=== PATIENT | male | born 1960 | race Caucasian/White ===

== ENCOUNTER 2022-11-12 07:24 | Outpatient (OUT) | payer OTHER, SELFPAY ==
[2022-11-12 07:52] LABS: Bilirubin Urine NEGATIVE (NEGATIVE); Blood Urine NEGATIVE (NEGATIVE); Clarity Urine CLEAR (CLEAR); Color Urine YELLOW (YELLOW); Glucose Urine UA NEGATIVE (NEGATIVE); Ketones Urine NEGATIVE (NEGATIVE); Leukocyte Esterase Urine NEGATIVE (NEGATIVE); Nitrite Urine NEGATIVE (NEGATIVE); Protein Urine NEGATIVE (NEG/TRACE); Specific Gravity Urine 1.015 (1.005-1.025); Urobilinogen Urine 0.2 EU/dL (0.2-1.0); pH Urine 7.5 (5.0-9.0)
[2022-11-12 08:00] LABS: Basophils Absolute Auto 0.1 10^3/uL (0.0-0.1); Basophils Percent Auto 0.9 % (0.2-2.0); Eosinophils Absolute Auto 0.3 10^3/uL (0.0-0.7); Eosinophils Percent Auto 5.9 % (0.9-7.0); Hematocrit 45.6 % (42.0-54.0); Hemoglobin 15.4 g/dL (14.0-18.0); Immature Granulocytes Abs Auto 0.01 10^3/uL (0.00-0.03); Immature Granulocytes Pct Auto 0.2 % (0.0-0.5); Lymphocytes Absolute Auto 1.6 10^3/uL (1.2-3.8); Mean Corpuscular HGB Conc 33.8 g/dL (29.9-35.2); Mean Corpuscular Hemoglobin 30.4 pg (25.9-34.0); Mean Corpuscular Volume 89.9 fL (80.0-94.0); Monocytes Absolute Auto 0.7 10^3/uL (0.3-0.8); Monocytes Percent Auto 11.7 % (1.7-12.0); Neutrophils Absolute Auto 3.1 10^3/uL (1.4-6.5); Neutrophils Percent Auto 54.3 % (43.0-75.0); Platelet Count 226 10^3/uL (150-450); Red Blood Count 5.07 10^6/uL (4.70-6.10); Red Cell Distribution Width 12.2 % (11.0-15.0); White Blood Count 5.8 10^3/uL (4.0-11.0)
[2022-11-12 08:06] LABS: Estimated Average Glucose 111 mg/dL; Glycohemoglobin A1C 5.5 % (4.5-6.2)
[2022-11-12 08:08] LABS: RBC Urine 0-2 #/HPF (0-2); WBC Urine NONE SEEN #/HPF (NONE SEEN)
[2022-11-12 08:09] LABS: Bacteria Urine NONE SEEN #/HPF (NONE SEEN); Cast Seen? NONE SEEN #/LPF (NONE SEEN); Crystals Seen? None Seen #/HPF (None Seen); Mucus Urine NONE SEEN (NONE SEEN); Squamous Epithelial Cell Urine NONE SEEN #/LPF (NONE/RARE); Urine Culture Indicated ALREADY ORDERED
[2022-11-12 08:09] LABS: Alanine Aminotransferase 38 U/L (16-63); Albumin Globulin Ratio 1.1; Albumin Level 3.8 g/dL (3.4-5.0); Alkaline Phosphatase 61 U/L (46-116); Anion Gap 12.6; Aspartate Amino Transferase 17 U/L (15-37); BUN Creatinine Ratio 17.8; Bilirubin Total 0.5 mg/dL (0.2-1.0); Calcium 8.9 mg/dL (8.5-10.1); Carbon Dioxide 29.4 mmol/L (21.0-32.0); Chloride 103 mmol/L (98-107); Chol HDL Ratio 2.2; Cholesterol 178 mg/dL (<=200); Estimated GFR (African America >60 (>=60); Estimated GFR (Non-African Ame >60 (>=60); Globulin 3.4 g/dL; Glucose 104 mg/dL (74-106); HDL Cholesterol 80 mg/dL (40-60); Sodium 141 mmol/L (136-145); Total Protein 7.2 g/dL (6.4-8.2); Triglycerides 52 mg/dL (<=150); VLDL CHOLESTEROL 10.4 mg/dL
[2022-11-12 08:23] LABS: Prostate Specific Antigen Scrn 0.69 ng/mL (<=4.00)
== END 2022-11-12 07:25 | disposition home or self-care (01) ==
LOC: LAB 07:24
PROVIDERS: PCP Family Medicine; Visit Provider Family Medicine
DX: E78.5 Hyperlipidemia, unspecified (principal); R73.9 Hyperglycemia, unspecified; Z79.899 Other long term (current) drug therapy; Z12.5 Encounter for screening for malignant neoplasm of prostate; R35.1 Nocturia
CPT/HCPCS: 36415; 80053; 80061; 81001; 83036; 85025; 87086; G0103

== ENCOUNTER 2023-05-18 06:37 | Outpatient (OUT) | payer OTHER, SELFPAY ==
[2023-05-18 07:06] LABS: Hemoglobin 15.2 g/dL (14.0-18.0); Mean Corpuscular HGB Conc 33.8 g/dL (29.9-35.2); Mean Corpuscular Hemoglobin 30.2 pg (25.9-34.0); Mean Corpuscular Volume 89.5 fL (80.0-94.0); Mean Platelet Volume 9.5 fL (9.5-13.5); Platelet Count 214 10^3/uL (150-450); Red Blood Count 5.03 10^6/uL (4.70-6.10); Red Cell Distribution Width 12.4 % (11.0-15.0); White Blood Count 4.6 10^3/uL (4.0-11.0)
[2023-05-18 07:36] LABS: Estimated Average Glucose 108 mg/dL; Glycohemoglobin A1C 5.4 % (4.5-6.2)
[2023-05-18 07:55] LABS: Alanine Aminotransferase 36 U/L (16-63); Albumin Globulin Ratio 1.1; Albumin Level 3.6 g/dL (3.4-5.0); Alkaline Phosphatase 64 U/L (46-116); Anion Gap 13.3; Aspartate Amino Transferase 25 U/L (15-37); BUN Creatinine Ratio 13.9; Bilirubin Total 0.5 mg/dL (0.2-1.0); Calcium 9.2 mg/dL (8.5-10.1); Carbon Dioxide 28.9 mmol/L (21.0-32.0); Chloride 104 mmol/L (98-107); Cholesterol 163 mg/dL (<=200); Estimated GFR (African America >60 (>=60); Estimated GFR (Non-African Ame >60 (>=60); Globulin 3.3 g/dL; Glucose 106 mg/dL (74-106); HDL Cholesterol 81 mg/dL (40-60); Potassium 4.2 mmol/L (3.5-5.1); Sodium 142 mmol/L (136-145); Thyroid Stimulating Hormone 2.634 uIU/mL (0.358-3.740); Total Protein 6.9 g/dL (6.4-8.2); Triglycerides 55 mg/dL (<=150)
[2023-05-18 08:17] LABS: Eosinophils Absolute Manual 0.55 10^3/uL (0.00-0.70); Lymphocytes Absolute Manual 0.87 10^3/uL (1.20-3.80); Segmented Neut Absolute Manual 2.71 10^3/uL (1.4-6.5)
== END 2023-05-18 06:38 | disposition home or self-care (01) ==
LOC: LAB 06:37
PROVIDERS: PCP Family Medicine; Visit Provider Family Medicine
DX: E78.5 Hyperlipidemia, unspecified (principal); R73.9 Hyperglycemia, unspecified; Z79.899 Other long term (current) drug therapy; R63.4 Abnormal weight loss
CPT/HCPCS: 36415; 80053; 80061; 83036; 84443; 85007; 85027

== ENCOUNTER 2023-12-07 06:31 | Outpatient (OUT) | payer OTHER, SELFPAY ==
[2023-12-07 06:51] LABS: Basophils Absolute Auto 0.1 10^3/uL (0.0-0.1); Basophils Percent Auto 1.1 % (0.2-2.0); Eosinophils Absolute Auto 0.5 10^3/uL (0.0-0.7); Eosinophils Percent Auto 9.8 % (0.9-7.0); Hematocrit 46.9 % (42.0-54.0); Hemoglobin 15.9 g/dL (14.0-18.0); Immature Granulocytes Abs Auto 0.01 10^3/uL (0.00-0.03); Immature Granulocytes Pct Auto 0.2 % (0.0-0.5); Lymphocytes Absolute Auto 1.6 10^3/uL (1.2-3.8); Lymphocytes Percent Auto 28.3 % (20.5-60.0); Mean Corpuscular HGB Conc 33.9 g/dL (29.9-35.2); Mean Corpuscular Hemoglobin 30.5 pg (25.9-34.0); Mean Platelet Volume 9.1 fL (9.5-13.5); Monocytes Absolute Auto 0.6 10^3/uL (0.3-0.8); Monocytes Percent Auto 10.5 % (1.7-12.0); Neutrophils Absolute Auto 2.8 10^3/uL (1.4-6.5); Neutrophils Percent Auto 50.1 % (43.0-75.0); Platelet Count 225 10^3/uL (150-450); Red Blood Count 5.21 10^6/uL (4.70-6.10); Red Cell Distribution Width 12.2 % (11.0-15.0); White Blood Count 5.5 10^3/uL (4.0-11.0)
[2023-12-07 06:52] LABS: Bilirubin Urine NEGATIVE (NEGATIVE); Blood Urine NEGATIVE (NEGATIVE); Clarity Urine CLEAR (CLEAR); Color Urine YELLOW (YELLOW); Glucose Urine UA NEGATIVE (NEGATIVE); Ketones Urine NEGATIVE (NEGATIVE); Leukocyte Esterase Urine NEGATIVE (NEGATIVE); Nitrite Urine NEGATIVE (NEGATIVE); Protein Urine NEGATIVE (NEG/TRACE); Urobilinogen Urine 0.2 EU/dL (0.2-1.0)
[2023-12-07 06:59] LABS: Estimated Average Glucose 108 mg/dL; Glycohemoglobin A1C 5.4 % (4.5-6.2)
[2023-12-07 07:09] LABS: RBC Urine NONE SEEN #/HPF (0-2); WBC Urine 0-2 #/HPF (NONE SEEN)
[2023-12-07 07:10] LABS: Bacteria Urine TRACE #/HPF (NONE SEEN); Cast Seen? NONE SEEN #/LPF (NONE SEEN); Crystals Seen? None Seen #/HPF (None Seen); Mucus Urine SMALL (NONE SEEN); Squamous Epithelial Cell Urine RARE #/LPF (NONE/RARE)
[2023-12-07 07:11] LABS: Alanine Aminotransferase 32 U/L (16-63); Albumin Globulin Ratio 1.1; Albumin Level 3.7 g/dL (3.4-5.0); Alkaline Phosphatase 68 U/L (46-116); Anion Gap 12.6; Aspartate Amino Transferase 24 U/L (15-37); BUN Creatinine Ratio 13.5; Bilirubin Total 0.7 mg/dL (0.2-1.0); Calcium 9.4 mg/dL (8.5-10.1); Carbon Dioxide 29.8 mmol/L (21.0-32.0); Chloride 105 mmol/L (98-107); Cholesterol 176 mg/dL (<=200); Estimated GFR (African America >60 (>=60 mL/min/1.73m^2); Estimated GFR (Non-African Ame >60 (>=60 mL/min/1.73m^2); Globulin 3.3 g/dL; Glucose 108 mg/dL (74-106); HDL Cholesterol 88 mg/dL (40-60); Potassium 4.4 mmol/L (3.5-5.1); Sodium 143 mmol/L (136-145); Triglycerides 104 mg/dL (<=150); VLDL CHOLESTEROL 20.8 mg/dL
[2023-12-07 07:23] LABS: Prostate Specific Antigen Scrn 0.71 ng/mL (<=4.00)
== END 2023-12-07 06:32 | disposition home or self-care (01) ==
PROVIDERS: PCP Family Medicine; Visit Provider Family Medicine
DX: Z00.00 Encounter for general adult medical examination without abnormal findings (principal)
CPT/HCPCS: 36415; 80053; 80061; 81001; 83036; 85025; G0103

== ENCOUNTER 2024-06-10 06:37 | Outpatient (OUT) | payer OTHER, SELFPAY ==
--- OUTSIDE RECORDS SUMMARY | 2024-06-10 06:40 | XMS_ITS | CCD ---
Author Organization [facility] Care Team Providers Care Building Construction Inspector Name Role Phone MirianAdina Unavailable Deon Funez Unavailable ARMIN, DR CHAVARRIA Consulting Unavailable ARMIN, DR CHAVARRIA Attending Unavailable GIRDAYDAY, DR CHAVARRIA Admitting Unavailable GIRDAYDAY, DR CHAVARRIA Primary Care Unavailable GIRDAYDAY, DR CHAVARRIA Consulting Unavailable GIRDAYDAY, DR CHAVARRIA Attending Unavailable GIRDAYDAY, DR CHAVARRIA Admitting Unavailable GIRDAYDAY, DR CHAVARRIA Primary Care Unavailable FOREIGN RIVERA Attending Unavailable RYAN BREEN Attending Unavailable Allergies Allergy Classification Reported Allergen(s) Allergy Type Date of Onset Reaction(s) Facility (10 sources) Penicillin; Translations: [penicillin] Drug Allergy rash [facility] Repository Medications Current Medications Medication Drug Class(es) Dates Sig (Normalized) Sig (Original) Jaleesa-D 12 Hour (10 sources) Jaleesa-D 12 Pipe r prn Not-Taking Jaleesa-D 12 Pipe r prn Active amLODIPine 10 mg oral tablet (10 sources) Dihydropyridine Calcium Channel David take 1 tablet by mouth once daily amLODIPine Besylate 10 MG TAKE 1 TABLET BY MOUTH EVERY DAY Active Aspirin (10 sources) Platelet Aggregation Inhibitor, Nonsteroidal Anti-inflammatory Drug take 1 tablet by mouth once melissa y Aspirin 325 mg 325 mg one tab orally daily Active atorvastatin 40 mg oral tablet (10 sources) HMG-CoA Reductase Inhibitor take 1 tablet by mouth once daily at bedtime Atorvastatin Calcium 40 MG TAKE 1 TABLET BY MOUTH EVERYDAY AT BEDTIME Active take 1 tablet by heidi th once daily at bedtime Atorvastatin Calcium TAKE 1 TABLET BY MO UTH EVERYDAY AT BEDTIME for 90 days Active benazepril hydrochloride 20 mg oral tablet (10 sources) Angiotensin Converting Enzyme Inhibitor take 1 tablet by mouth once daily Benazepril HCl 20 MG TAKE 1 TABLET BY MOUTH EVERY DAY Active famotidine 20 mg oral tablet (10 sources) Histamine-2 Receptor Antagonist take 1 tablet by mouth once daily in the morning, then take 1 tablet by mouth once daily in the evening Famotidine 20 MG TAKE 1 TABLET BY MOUTH EVERY DAY IN THE MORNING AND TAKE 1 TABLET EVERY DAY IN THE EVENING Active Glucosamine (10 sources) Glucosamine OTC pt. takes 1,000 mg daily Active melatonin 3 mg oral tablet (4 sources) take 1 tablet by heidi th at bedtime as needed Melatonin 3 MG 1 tablet at bedtime as needed with food Orally prn prn Active mometasone furoate 1 mg/ml topical cream (2 sources) Corticosteroid Start: 04-29-2022 Mometasone Fur oate 0.1 % 1 application Externally Once a day Apr, Active Multivitamin Adults 50+ (10 sources) Multivitamin Mir lts 50+ Orally Active predniSONE 20 mg oral tablet (4 sources) Start: 02-12-2021 take 1 tablet by mouth every twelve hours predniSONE 20 MG 1 tablet Orally bid for 5 day(s) Jan, Active {20 (nirmatrelvir 150 MG Oral Tablet) / 10 (ritonavir 100 MG Oral Tablet) } Pack [Paxlovid 5-Day] (1 source) Start: 02-04-2022 Paxlovid (300/ 100) 20 x 150 MG & 10 x 100MG as directed Orally Twice a day for 5 day(s) Jan, Active Completed/Discontinued Medications Medication Drug Class(es) Dates Sig (Normalized) Sig (Original) fluticasone propionate 0.05 mg/actuat metered dose nasal spray (10 sources) Corticosteroid take 1-2 spray(s) nasal route once daily as needed Fluticasone Propionate 50 MCG/ACT USE 1-2 SPRAYS INTO EACH NOSTRIL ONCE DAILY prn Not-Taking take 1-2 spray(s) na cali route once daily as needed FLONASE 50 mcg 1-2 sprays each NOSTRIL nasally qd prn Active methylPREDNISolone (5 sources) Corticosteroid Start: 05-14-2017 Depo-Medrol 40 mg Apr, 60 mg Problems Active Problems Problem Classification Problem Date Documented Date Episodic/Chronic Acute cerebrovascular disease (10 sources) Cerebral infarction; Translations: [Cerebral infarction, unspecified] Chronic Adjustment disorders (10 sources) Reaction to severe stress, unspecified; Translations: [Stress] Chronic Anxiety disorders (10 sources) Anxiety; Translations: [Anxiety disorder, unspecified] Chronic Diabetes mellitus without complication (5 sources) Hyperglycemia, unspecified; Translations: [HYPERGLYCEMIA UNSPECIFIED] Onset: 03-11-2021 Resolved: 10-21-2021 Episodic Disorders of lipid metabolism (18 sources) Hyperlipidemia; Translations: [Hyperlipidemia, unspecified] Onset: 03-11-2021 Resolved: 10-21-2021 Chronic Esophageal disorders (13 sources) Gastroesophageal reflux disease; Translations: [Gastro-esophageal reflux disease without esophagitis] Onset: 10-21-2021 Resolved: 10-21-2021 Chronic Essential hypertension (20 sources) Elevated blood pressure; Translations: [Essential (primary) hypertension] Onset: 03-11-2021 Resolved: 10-21-2021 Chronic Fever of unknown origin (2 sources) Fever, unspecified Onset: 02-13-2021 Resolved: 02-13-2021 Episodic Genitourinary symptoms and ill-defined conditions (5 sources) Nocturia; Translations: [NOCTURIA] Onset: 03-11-2021 Resolved: 10-21-2021 Episodic Malaise and fatigue (1 source) Other fatigue Episodic Other aftercare (5 sources) Other supervisor intermediates (current) drug therapy; Translations: [OTH PRISON CURRENT DRUG THERAPY] Onset: 03-11-2021 Resolved: 10-21-2021 Episodic Other connective tissue disease (1 source) Myalgia, unspecified site Episodic Other nutritional; endocrine; and metabolic disorders (4 sources) Abnormal weight loss; Translations: [ABNORMAL WEIGHT LOSS] Onset: 10-21-2021 Resolved: 10-21-2021 Episodic Other screening for suspected conditions (not mental disorders or infectious disease) (4 sources) Encounter for screening for malignant neoplasm of prostate; Translations: [ENC SCREEN MALIG NEOPLASM PROSTATE] Onset: 03-11-2021 Resolved: 10-21-2021 Episodic Other upper respiratory disease (10 sources) Allergic rhinitis; Translations: [Allergic rhinitis, unspecified] Chronic Other upper respiratory disease (3 sources) Allergic rhinitis, unspecified Onset: 03-11-2021 Resolved: 10-21-2021 Chronic Residual codes; unclassified (10 sources) Insomnia; Translations: [Insomnia, unspecified] Episodic Past or Other Problems Problem Classification Problem Date Documented Da te Episodic/Chronic Immunizations and screening for infectious disease (1 source) Contact with and (suspected) exposure to other viral communicable diseases Onset: 02-12-2021 Resolved: 02-12-2021 Episodic Other circulatory disease (1 source) Other specified symptoms and signs involving the circulatory and respiratory systems Onset: 02-13-2021 Resolved: 02-13-2021 Episodic Other non-traumatic joint disorders (1 source) Pain in left hip Onset: 10-21-2021 Resolved: 10-21-2021 Episodic Other nutritional; endocrine; and metabolic disorders (1 source) Abnormal weight gain Onset: 03-11-2021 Resolved: 03-11-2021 Episodic Other upper respiratory disease (1 source) Nasal congestion Onset: 02-13-2021 Resolved: 02-13-2021 Episodic Other upper respiratory infections (1 source) Acute sinusitis, unspecified Onset: 02-12-2021 Resolved: 02-12-2021 Episodic Unclassified (2 sources) Cough R05.9 Onset: 02-13-2021 Resolved: 02-13-2021 Viral infection (1 source) COVID-19 Results Test Name Value Interpretation Reference Range Facil ity CBC AUTO DIFFon 05-02-2022 BASO # 0.1 103/ul Normal 0.0-0.1 [facility] Comment on above: Performed By: #### C BC #### [facility] [address] [place] [address] Dr. Puja Leonard Basophils/100 WBC (Bld) 1.1 % Normal 0.2-2.0 [facility] Comment on above: Performed By: #### C BC #### [facility] [address] [place] [address] Dr. Puja Leonard EO # 0.3 103/ul Normal 0.0-0.7 [facility] Comment on above: Performed By: #### C BC #### [facility] [address] [place] [address] Dr. Puja Leonard Eosinophils/100 WBC (Bld) 6.6 % Normal 0.9-7.0 [facility] Comment on above: Performed By: #### C BC #### [facility] [address] [place] [address] Dr. Puja Leonard Erythrocyte distribution width (RBC) [Ratio] 12.3 % Normal 11.0-15.0 [facility] Comment on above: Performed By: #### C BC #### [facility] [address] [place] [address] Dr. Puja Leonard Hematocrit (Bld) [Volume fraction] 46.1 % Normal 42.0-54.0 [facility] Comment on above: Performed By: #### C BC #### [facility] [address] [place] [address] Dr. Puja Leonard Hemoglobin (Bld) [Mass/Vol] 15.8 g/dL Normal 14.0-18.0 [facility] Comment on above: Performed By: #### C BC #### [facility] [address] [place] [address] Dr. Puja Leonard IG # 0.01 10e3/ul Normal 0.00-0.03 [facility] Comment on above: Performed By: #### C BC #### [facility] [address] [place] [address] Dr. Puja Leonard IG % 0.2 % Normal 0.0-0.5 [facility] Comment on above: Performed By: #### C BC #### [facility] [address] [place] [address] Dr. Puja Leonard LYMPH # 1.5 103/ul Normal 1.2-3.8 [facility] Comment on above: Performed By: #### C BC #### [facility] [address] [place] [address] Dr. Puja Leonard Lymphocytes/100 WBC (Bld) 32.4 % Normal 20.5-60.0 [facility] Comment on above: Performed By: #### C BC #### [facility] [address] [place] [address] Dr. Puja Leonard MANUAL DIFF REQ NO Normal [facility] Comment on above: Performed By: #### C BC #### [facility] [address] [place] [address] Dr. Puja Leonard MCH (RBC) [Entitic mass] 29.9 pg Normal 25.9-34.0 [facility] Comment on above: Performed By: #### C BC #### [facility] [address] [address] [address] Puja Leonard MCHC (RBC) [Mass/Vol] 34.3 g/dL Normal 29.9-35.2 [facility] Comment on above: Performed By: #### C BC #### [facility] [address] [address] [address] Puja Leonard MCV (RBC) [Entitic vol] 87.3 fL Normal 80.0-94.0 [facility] Comment on above: Performed By: #### C BC #### [facility] [address] [address] [address] Puja Leonard MONO # 0.5 103/ul Normal 0.3-0.8 [facility] Comment on above: Performed By: #### C BC #### [facility] [address] [place] [address] Dr. Puja Leonard Monocytes/100 WBC (Bld) 10.2 % Normal 1.7-12.0 [facility] Comment on above: Performed By: #### C BC #### [facility] [address] [address] [address] Puja Leonard NEUT # 2.3 103/ul Normal 1.4-6.5 [facility] Comment on above: Performed By: #### C BC #### [facility] [address] [place] [address] Dr. Puja Leonard Neutrophils/100 WBC (Bld) 49.5 % Normal 43.0-75.0 [facility] Comment on above: Performed By: #### C BC #### [facility] [address] [address] [address] Puja Leonard Platelet mean volume (Bld) [Entitic vol] 8.6 fL Critically low 9.5-13.5 [facility] Comment on above: Performed By: #### C BC #### [facility] [address] [address] [address] Puja Leonard PLT 215 103/ul Normal 150-450 [facility] Comment on above: Performed By: #### C BC #### [facility] [address] [place] [address] Dr. Puja Leonard RBC 5.28 106/ul Normal 4.70-6.10 [facility] Comment on above: Performed By: #### C BC #### [facility] [address] [address] [address] Puja Leonard WBC 4.7 103/ul Normal 4.0-11.0 [facility] Comment on above: Performed By: #### C BC #### [facility] [address] [place] [address] Dr. Puja Leonard GLYCOHEMOGLOBIN A1Con 2022 ADA RECOMMENDATION SEE BELOW Normal [facility] Comment on above: Result Comment: ADA RECOMMENDED LIMIT 4.0 - 6.0 ADA THERAPEUTIC TARGET < 7.0 ACTION SUGGESTED > 7.0 Performed By: #### A 1C #### [facility] [address] [place] [address] Dr. Puja Leonard Glucose [Mass/Vol] 114 mg/dL Normal [facility] Comment on above: Performed By: #### A 1C #### [facility] [address] [place] [address] Dr. Puja Leonard HbA1c (Bld) [Mass fraction] 5.6 % Normal 4.5-6.2 [facility] Comment on above: Performed By: #### A 1C #### [facility] [address] [place] [address] Dr. Puja Leonard LIPID PROFILEon 05-02-2022 CHOL-HDL RATIO NORM SEE BELOW Normal [facility] Comment on above: Result Comment: 3.3 - 4.4 LOW RISK 4.4 - 7.1 AVERAGE RISK 7.1 - 11.0 MODERATE RISK >11.0 HIGH RISK Performed By: #### T SH, LIPID, CMP #### [facility] [address] [place] [address] Dr. Puja Leonard Cholesterol [Mass/Vol] 186 mg/dL Normal <=200 [facility] Comment on above: Performed By: #### T SH, LIPID, CMP #### [facility] [address] [address] [address] Puja Leonard Cholesterol in HDL [Mass/Vol] 79 mg/dL Critically high 40-60 [facility] Comment on above: Performed By: #### T SH, LIPID, CMP #### [facility] [address] [address] [address] Puja Leonard Cholesterol in LDL [Mass/Vol] 94.8 mg/dL Normal [facility] Comment on above: Performed By: #### T SH, LIPID, CMP #### [facility] [address] [place] [address] Dr. Puja Leonard Cholesterol.total/Cho lesterol in HDL [Mass ratio] 2.4 {ratio} Normal [facility] Comment on above: Performed By: #### T SH, LIPID, CMP #### [facility] [address] [address] [address] Puja Leonard HDL NORMAL > or = 60 mg/dl - LOW CARDIOVASCULAR RISK <40 mg/dl - HIGH CARDIOVASCULAR RISK Normal [facility] Comment on above: Performed By: #### T SH, LIPID, CMP #### [facility] [address] [place] [address] Dr. Puja Leonard LDL CALC NORMAL SEE BELOW Normal [facility] Comment on above: Result Comment: <100 mg/dl OPTIMAL 100 - 129 mg/dl NEAR OR ABOVE OPTIMAL 130 - 159 mg/dl BORDERLINE HIGH 160 - 189 mg/dl HIGH >190 mg/dl VERY HIGH Performed By: #### T JOSE, LIPID, CMP #### [facility] [address] [address] [address] Puja Leonard Triglyceride [Mass/Vol] 61 mg/dL Normal <=150 [facility] Comment on above: Performed By: #### T SH, LIPID, CMP #### [facility] [address] [place] [address] Dr. Puja Leonard VLDL CALC 12.2 mg/dL Normal [facility] Comment on above: Performed By: #### T SH, LIPID, CMP #### [facility] [address] [place] [address] Dr. Puja Leonard PROF 14(COMP METB)on 023 Albumin [Mass/Vol] 3.8 g/dL Normal 3.4-5.0 [facility] Comment on above: Performed By: #### T SH, LIPID, CMP #### [facility] [address] [address] [address] Puja Leonard Albumin/Globulin [Mass ratio] 1.2 {ratio} Normal [facility] Comment on above: Performed By: #### T SH, LIPID, CMP #### [facility] [address] [address] [address] Puja Leonard ALP [Catalytic activity/Vol] 62 U/L Normal 46-116 [facility] Comment on above: Performed By: #### T JOSE, LIPID, CMP #### [facility] [address] [place] [address] Dr. Puja Leonard ALT [Catalytic activity/Vol] 45 U/L Normal 16-63 [facility] Comment on above: Performed By: #### T JOSE, LIPID, CMP #### [facility] [address] [address] [address] Puja Leonard Anion gap [Moles/Vol] 12.4 mmol/L Normal [facility] Comment on above: Performed By: #### T JOSE, LIPID, CMP #### [facility] [address] [place] [address] Dr. Puja Leonard AST [Catalytic activity/Vol] 24 U/L Normal 15-37 [facility] Comment on above: Performed By: #### T JOSE, LIPID, CMP #### [facility] [address] [address] [address] Puja Leonard Bilirubin [Mass/Vol] 0.4 mg/dL Normal 0.2-1.0 [facility] Comment on above: Performed By: #### T SH, LIPID, CMP #### [facility] [address] [address] [address] Puja Leonard Calcium [Mass/Vol] 9.1 mg/dL Normal 8.5-10.1 [facility] Comment on above: Performed By: #### T SH, LIPID, CMP #### [facility] [address] [address] [address] Puja Leonard Chloride [Moles/Vol] 105 mmol/L Normal 98-107 [facility] Comment on above: Performed By: #### T SH, LIPID, CMP #### [facility] [address] [place] [address] Dr. Puja Leonard CO2 [Moles/Vol] 30.2 mmol/L Normal 21.0-32.0 [facility] Comment on above: Performed By: #### T SH, LIPID, CMP #### [facility] [address] [address] [address] Puja Leonard Creatinine [Mass/Vol] 0.86 mg/dL Normal 0.70-1.30 [facility] Comment on above: Performed By: #### T SH, LIPID, CMP #### [facility] [address] [place] [address] Dr. Puja Leonard EGFR-AF CYMRO >60 Normal >=60 [facility] Comment on above: Performed By: #### T SH, LIPID, CMP #### [facility] [address] [place] [address] Dr. Puja Leonard EGFR-NON AF CYMRO >60 Normal >=60 [facility] Comment on above: Performed By: #### T SH, LIPID, CMP #### [facility] [address] [place] [address] Dr. Puja Leonard Globulin (S) [Mass/Vol] 3.1 g/dL Normal [facility] Comment on above: Performed By: #### T SH, LIPID, CMP #### [facility] [address] [place] [address] Dr. Puja Leonard Glucose [Mass/Vol] 109 mg/dL Critically high 74-106 [facility] Comment on above: Performed By: #### T SH, LIPID, CMP #### [facility] [address] [place] [address] Dr. Puja Leonard Potassium [Moles/Vol] 4.6 mmol/L Normal 3.5-5.1 [facility] Comment on above: Performed By: #### T SH, LIPID, CMP #### [facility] [address] [place] [address] Dr. Puja Leonard Protein [Mass/Vol] 6.9 g/dL Normal 6.4-8.2 [facility] Comment on above: Performed By: #### T SH, LIPID, CMP #### [facility] [address] [place] [address] Dr. Puja Leonard Sodium [Moles/Vol] 143 mmol/L Normal 136-145 [facility] Comment on above: Performed By: #### T SH, LIPID, CMP #### [facility] [address] [place] [address] Dr. Puja Leonard Urea nitrogen [Mass/Vol] 13.0 mg/dL Normal 7.0-18.0 [facility] Comment on above: Performed By: #### T SH, LIPID, CMP #### [facility] [address] [place] [address] Dr. Puja Leonard Urea nitrogen/Creatinine [Mass ratio] 15.1 mg/mg Normal [facility] Comment on above: Performed By: #### T SH, LIPID, CMP #### [facility] [address] [place] [address] Dr. Puja Leonard TSHon 05-02-2022 TSH 2.403 uIU/mL Normal 0.358-3.740 [facility] Comment on above: Performed By: #### T SH, LIPID, CMP #### [facility] [address] [place] [address] Dr. Puja Leonard CBC AUTO DIFFon 10-11-2021 BASO # 0.0 103/ul Normal 0.0-0.1 [facility] Comment on above: Performed By: #### C BC #### [facility] [address] [place] [address] Dr. Puja Leonard Basophils/100 WBC (Bld) 0.7 % Normal 0.2-2.0 [facility] Comment on above: Performed By: #### C BC #### [facility] [address] [place] [address] Dr. Puja Leonard EO # 0.3 103/ul Normal 0.0-0.7 [facility] Comment on above: Performed By: #### C BC #### [facility] [address] [place] [address] Dr. Puja Leonard Eosinophils/100 WBC (Bld) 5.9 % Normal 0.9-7.0 [facility] Comment on above: Performed By: #### C BC #### [facility] [address] [place] [address] Dr. Puja Leonard Erythrocyte distribution width (RBC) [Ratio] 12.2 % Normal 11.0-15.0 [facility] Comment on above: Performed By: #### C BC #### [facility] [address] [place] [address] Dr. Puja Leonard Hematocrit (Bld) [Volume fraction] 46.0 % Normal 42.0-54.0 [facility] Comment on above: Performed By: #### C BC #### [facility] [address] [place] [address] Dr. Puja Leonard Hemoglobin (Bld) [Mass/Vol] 15.8 g/dL Normal 14.0-18.0 [facility] Comment on above: Performed By: #### C BC #### [facility] [address] [place] [address] Dr. Puja Leonard IG # 0.01 10e3/ul Normal 0.00-0.03 [facility] Comment on above: Performed By: #### C BC #### [facility] [address] [place] [address] Dr. Puja Leonard IG % 0.2 % Normal 0.0-0.5 [facility] Comment on above: Performed By: #### C BC #### [facility] [address] [place] [address] Dr. Puja Leonard LYMPH # 1.7 103/ul Normal 1.2-3.8 [facility] Comment on above: Performed By: #### C BC #### [facility] [address] [place] [address] Dr. Puja Leonard Lymphocytes/100 WBC (Bld) 29.1 % Normal 20.5-60.0 [facility] Comment on above: Performed By: #### C BC #### [facility] [address] [place] [address] Dr. Puja Leonard MANUAL DIFF REQ NO Normal [facility] Comment on above: Performed By: #### C BC #### [facility] [address] [place] [address] Dr. Puja Leonard MCH (RBC) [Entitic mass] 30.5 pg Normal 25.9-34.0 [facility] Comment on above: Performed By: #### C BC #### [facility] [address] [place] [address] Dr. Puja Leonard MCHC (RBC) [Mass/Vol] 34.3 g/dL Normal 29.9-35.2 [facility] Comment on above: Performed By: #### C BC #### [facility] [address] [place] [address] Dr. Puja Leonard MCV (RBC) [Entitic vol] 88.8 fL Normal 80.0-94.0 [facility] Comment on above: Performed By: #### C BC #### [facility] [address] [place] [address] Dr. Puja Leonard MONO # 0.7 103/ul Normal 0.3-0.8 [facility] Comment on above: Performed By: #### C BC #### [facility] [address] [place] [address] Dr. Puja Leonard Monocytes/100 WBC (Bld) 11.5 % Normal 1.7-12.0 [facility] Comment on above: Performed By: #### C BC #### [facility] [address] [place] [address] Dr. Puja Leonard NEUT # 3.0 103/ul Normal 1.4-6.5 [facility] Comment on above: Performed By: #### C BC #### [facility] [address] [place] [address] Dr. Puja Leonard Neutrophils/100 WBC (Bld) 52.6 % Normal 43.0-75.0 [facility] Comment on above: Performed By: #### C BC #### [facility] [address] [address] [address] Puja Leonard Platelet mean volume (Bld) [Entitic vol] 8.8 fL Critically low 9.5-13.5 [facility] Comment on above: Performed By: #### C BC #### [facility] [address] [address] [address] Puja Leonard PLT 235 103/ul Normal 150-450 [facility] Comment on above: Performed By: #### C BC #### [facility] [address] [address] [address] Puja Leonard RBC 5.18 106/ul Normal 4.70-6.10 [facility] Comment on above: Performed By: #### C BC #### [facility] [address] [place] [address] Dr. Puja Leonard WBC 5.7 103/ul Normal 4.0-11.0 [facility] Comment on above: Performed By: #### C BC #### [facility] [address] [place] [address] Dr. Puja Leonard CULTURE URINEon 10-11-2021 CULTURE URINE Culture Observations: NO GROWTH. Normal [facility] Comment on above: Performed By: #### U RCX #### [facility] [address] [place] [address] Dr. Puja Leonard GLYCOHEMOGLOBIN A1Con 2021 ADA RECOMMENDATION SEE BELOW Normal [facility] Comment on above: Result Comment: ADA RECOMMENDED LIMIT 4.0 - 6.0 ADA THERAPEUTIC TARGET < 7.0 ACTION SUGGESTED > 7.0 Performed By: #### A 1C #### [facility] [address] [place] [address] Dr. Puja Leonard Glucose [Mass/Vol] 111 mg/dL Critically high 74-106 [facility] Comment on above: Performed By: #### A 1C #### [facility] [address] [place] [address] Dr. Puja Leonard Performed By: #### T SH, LIPID, CMP #### [facility] [address] [address] [address] Puja Leonard HbA1c (Bld) [Mass fraction] 5.5 % Normal 4.5-6.2 [facility] Comment on above: Performed By: #### A 1C #### [facility] [address] [address] [address] Puja Leonard LIPID PROFILEon 10-11-2021 CHOL-HDL RATIO NORM SEE BELOW Normal [facility] Comment on above: Result Comment: 3.3 - 4.4 LOW RISK 4.4 - 7.1 AVERAGE RISK 7.1 - 11.0 MODERATE RISK >11.0 HIGH RISK Performed By: #### T SH, LIPID, CMP #### [facility] [address] [address] [address] Puja Leonard Cholesterol [Mass/Vol] 176 mg/dL Normal <=200 [facility] Comment on above: Performed By: #### T SH, LIPID, CMP #### [facility] [address] [address] [address] Puja Leonard Cholesterol in HDL [Mass/Vol] 81 mg/dL Critically high 40-60 [facility] Comment on above: Performed By: #### T SH, LIPID, CMP #### [facility] [address] [address] [address] Puja Leonard Cholesterol in LDL [Mass/Vol] 75.8 mg/dL Normal [facility] Comment on above: Performed By: #### T SH, LIPID, CMP #### [facility] [address] [address] [address] Puja Leonard Cholesterol.total/Cho lesterol in HDL [Mass ratio] 2.2 {ratio} Normal [facility] Comment on above: Performed By: #### T SH, LIPID, CMP #### [facility] [address] [place] [address] Dr. Puja Leonard HDL NORMAL > or = 60 mg/dl - LOW CARDIOVASCULAR RISK <40 mg/dl - HIGH CARDIOVASCULAR RISK Normal [facility] Comment on above: Performed By: #### T SH, LIPID, CMP #### [facility] [address] [place] [address] Dr. Puja Leonard LDL CALC NORMAL SEE BELOW Normal [facility] Comment on above: Result Comment: <100 mg/dl OPTIMAL 100 - 129 mg/dl NEAR OR ABOVE OPTIMAL 130 - 159 mg/dl BORDERLINE HIGH 160 - 189 mg/dl HIGH >190 mg/dl VERY HIGH Performed By: #### T SH, LIPID, CMP #### [facility] [address] [address] [address] Puja Leonard Triglyceride [Mass/Vol] 96 mg/dL Normal <=150 [facility] Comment on above: Performed By: #### T SH, LIPID, CMP #### [facility] [address] [address] [address] Puja Leonard VLDL CALC 19.2 mg/dL Normal [facility] Comment on above: Performed By: #### T SH, LIPID, CMP #### [facility] [address] [place] [address] Dr. Puja Leonard PROF 14(COMP METB)on 022 Albumin [Mass/Vol] 4.0 g/dL Normal 3.4-5.0 [facility] Comment on above: Performed By: #### T JOSE, LIPID, CMP #### [facility] [address] [address] [address] Puja Leonard Albumin/Globulin [Mass ratio] 1.2 {ratio} Normal [facility] Comment on above: Performed By: #### T JOSE, LIPID, CMP #### [facility] [address] [address] [address] Puja Leonard ALP [Catalytic activity/Vol] 65 U/L Normal 46-116 [facility] Comment on above: Performed By: #### T SH, LIPID, CMP #### [facility] [address] [address] [address] Puja Leonard ALT [Catalytic activity/Vol] 32 U/L Normal 16-63 [facility] Comment on above: Performed By: #### T SH, LIPID, CMP #### [facility] [address] [address] [address] Puja Leonard Anion gap [Moles/Vol] 10.0 mmol/L Normal [facility] Comment on above: Performed By: #### T SH, LIPID, CMP #### [facility] [address] [address] [address] Puja Leonard AST [Catalytic activity/Vol] 20 U/L Normal 15-37 [facility] Comment on above: Performed By: #### T SH, LIPID, CMP #### [facility] [address] [place] [address] Dr. Puja Leonard Bilirubin [Mass/Vol] 0.7 mg/dL Normal 0.2-1.0 [facility] Comment on above: Performed By: #### T SH, LIPID, CMP #### [facility] [address] [place] [address] Dr. Puja Leonard Calcium [Mass/Vol] 8.9 mg/dL Normal 8.5-10.1 [facility] Comment on above: Performed By: #### T SH, LIPID, CMP #### [facility] [address] [place] [address] Dr. Puja Leonard Chloride [Moles/Vol] 102 mmol/L Normal 98-107 [facility] Comment on above: Performed By: #### T SH, LIPID, CMP #### [facility] [address] [place] [address] Dr. Puja Leonard CO2 [Moles/Vol] 30.9 mmol/L Normal 21.0-32.0 [facility] Comment on above: Performed By: #### T SH, LIPID, CMP #### [facility] [address] [place] [address] Dr. Puja Leonard Creatinine [Mass/Vol] 0.94 mg/dL Normal 0.70-1.30 [facility] Comment on above: Performed By: #### T SH, LIPID, CMP #### [facility] [address] [place] [address] Dr. Puja eLonard EGFR-AF CYMRO >60 Normal >=60 [facility] Comment on above: Performed By: #### T SH, LIPID, CMP #### [facility] [address] [place] [address] Dr. Puja Leonard EGFR-NON AF CYMRO >60 Normal >=60 [facility] Comment on above: Performed By: #### T JOSE, LIPID, CMP #### [facility] [address] [place] [address] Dr. Puja Leonard Globulin (S) [Mass/Vol] 3.3 g/dL Normal [facility] Comment on above: Performed By: #### T JOSE LIPID, CMP #### [facility] [address] [place] [address] Dr. Puja Leonard Potassium [Moles/Vol] 3.9 mmol/L Normal 3.5-5.1 [facility] Comment on above: Performed By: #### T JOSE LIPID, CMP #### [facility] [address] [place] [address] Dr. Puja Leonard Protein [Mass/Vol] 7.3 g/dL Normal 6.4-8.2 [facility] Comment on above: Performed By: #### T JOSE LIPID, CMP #### [facility] [address] [place] [address] Dr. Puja Leonard Sodium [Moles/Vol] 139 mmol/L Normal 136-145 [facility] Comment on above: Performed By: #### T JOSE LIPID, CMP #### [facility] [address] [place] [address] Dr. Puja Leonard Urea nitrogen [Mass/Vol] 14.0 mg/dL Normal 7.0-18.0 [facility] Comment on above: Performed By: #### T JOSE LIPID, CMP #### [facility] [address] [place] [address] Dr. Puja Leonard Urea nitrogen/Creatinine [Mass ratio] 14.9 mg/mg Normal [facility] Comment on above: Performed By: #### T JOSE, LIPID, CMP #### [facility] [address] [place] [address] Dr. Puja Leonard UA RANDOMon 10-11-2021 Bilirubin Ql (U) Negative Normal NEGATIVE [facility] Comment on above: Performed By: #### U A #### [facility] [address] [place] [address] Dr. Puja Leonard Clarity (U) CLEAR Normal CLEAR [facility] Comment on above: Performed By: #### U A #### [facility] [address] [place] [address] Dr. Puja Leonard Color (U) LT. YELLOW Normal YELLOW [facility] Comment on above: Performed By: #### U A #### [facility] [address] [place] [address] Dr. Puja Leonard Glucose Ql (U) Negative Normal NEGATIVE [facility] Comment on above: Performed By: #### U A #### [facility] [address] [place] [address] Dr. Puja Leonard Hemoglobin Ql (U) Negative Normal NEGATIVE [facility] Comment on above: Performed By: #### U A #### [facility] [address] [place] [address] Dr. Puja Leonard Ketones Ql (U) Negative Normal NEGATIVE [facility] Comment on above: Performed By: #### U A #### [facility] [address] [place] [address] Dr. Puja Leonard LEUKOCYTES Negative Normal NEGATIVE [facility] Comment on above: Performed By: #### U A #### [facility] [address] [place] [address] Dr. Puja Leonard Nitrite Ql (U) Negative Normal NEGATIVE [facility] Comment on above: Performed By: #### U A #### [facility] [address] [place] [address] Dr. Puja Leonard pH (U) 7.5 [pH] Normal 5-9 [facility] Comment on above: Performed By: #### U A #### [facility] [address] [place] [address] Dr. Puja Leonard SPEC GRAVITY <=1.005 Abnormal 1.005-<=1.025 [facility] Comment on above: Performed By: #### U A #### [facility] [address] [place] [address] Dr. Puja Leonard UA PROTEIN Negative Normal NEGATIVE/ TRACE [facility] Comment on above: Performed By: #### U A #### [facility] [address] [place], [place] [address] Dr. Puja Leonard Urobilinogen Qn (U) 0.2 {Sandy'U}/dL Normal 0.2 - 1. 0 [facility] Comment on above: Performed By: #### U A #### [facility] [address] [address] [address] Puja Leonard Vital Signs Date Time Vital Sign Value Performing Clinician Facility 11-23-2022 16:40-0400 Body height 173.99 cm Deon Funez Other [facility] Other 11-23-2022 16:40-0400 Body mass index (BMI) [Ratio] 28.54 kg/m2 Deon Funez Other [facility] Other 11-23-2022 16:40-0400 Body temperature 98.9 [degF] Deon Funez Other [facility] Other 11-23-2022 16:40-0400 Body weight 86.41 kg Deon Funez Other [facility] Other 11-23-2022 16:40-0400 Diastolic blood pressure 84 mm[Hg] Deon Funez Other [facility] Other 11-23-2022 16:40-0400 Respiratory rate 18 /min Deon Funez Other [facility] Other 11-23-2022 16:40-0400 SaO2% (BldA) [Mass fraction] 97 % Deon Funez Other [facility] Other 11-23-2022 16:40-0400 Systolic blood pressure 128 mm[Hg] Deon Funez Other [facility] Other 05-11-2022 17:40-0400 Body height 173.99 cm Deon Funez Other [facility] Other 05-11-2022 17:40-0400 Body mass index (BMI) [Ratio] 28.54 kg/m2 Deon Funez Other [facility] Other 05-11-2022 17:40-0400 Body temperature 98 [degF] Deon Funez Other [facility] Other 05-11-2022 17:40-0400 Body weight 86.41 kg Deon Funez Other [facility] Other 05-11-2022 17:40-0400 Diastolic blood pressure 84 mm[Hg] Deon Funez Other [facility] Other 05-11-2022 17:40-0400 Respiratory rate 18 /min Deon Funez Other [facility] Other 05-11-2022 17:40-0400 SaO2% (BldA) [Mass fraction] 98 % Deon Funez Other [facility] Other 05-11-2022 17:40-0400 Systolic blood pressure 126 mm[Hg] Deon Funez Other [facility] Other 10-21-2021 11:30-0400 Body height 173.99 cm Deon Funez Other [facility] Other 10-21-2021 11:30-0400 Body mass index (BMI) [Ratio] 28.54 kg/m2 Deon Funez Other [facility] Other 10-21-2021 11:30-0400 Body temperature 98.7 [degF] Deon Funez Other [facility] Other 10-21-2021 11:30-0400 Body weight 86.41 kg Deon Funez Other [facility] Other 10-21-2021 11:30-0400 Diastolic blood pressure 82 mm[Hg] Deon Funez Other [facility] Other 10-21-2021 11:30-0400 Respiratory rate 18 /min Deon Funez Other [facility] Other 10-21-2021 11:30-0400 SaO2% (BldA) [Mass fraction] 98 % Deon Funez Other [facility] Other 10-21-2021 11:30-0400 Systolic blood pressure 128 mm[Hg] Deon Funez Other [facility] Other 03-11-2021 11:30-0500 Body height 175.26 cm Deon Funez Other [facility] Other 03-11-2021 11:30-0500 Body mass index (BMI) [Ratio] 28.35 kg/m2 Deon Funez Other [facility] Other 03-11-2021 11:30-0500 Body temperature 98.1 [degF] Deon Funez Other [facility] Other 03-11-2021 11:30-0500 Body weight 87.09 kg Deon Funez Other [facility] Other 03-11-2021 11:30-0500 Diastolic blood pressure 80 mm[Hg] Deon Funez Other [facility] Other 03-11-2021 11:30-0500 Respiratory rate 18 /min Deon Funez Other [facility] Other 03-11-2021 11:30-0500 SaO2% (BldA) [Mass fraction] 97 % Deon Funez Other [facility] Other 03-11-2021 11:30-0500 Systolic blood pressure 130 mm[Hg] Deon Funez Other [facility] Other 02-12-2021 16:30-0500 Body height 175.26 cm Adina Vela Other [facility] Other 02-12-2021 16:30-0500 Body mass index (BMI) [Ratio] 28.06 kg/m2 Adina Vela Other [facility] Other 02-12-2021 16:30-0500 Body temperature 101 [degF] Adina Vela Other [facility] Other 02-12-2021 16:30-0500 Body weight 86.18 kg Adina Vela Other [facility] Other 02-12-2021 16:30-0500 Respiratory rate 18 /min Adina Vela Other [facility] Other 02-12-2021 16:30-0500 SaO2% (BldA) [Mass fraction] 98 % Adina Aguirremond Other [facility] Other Encounters Encounter Date Encounter Type Care Provider Facility Start: 04-13-2024 End: 04-13-2024 ambulatory FOREIGN RIVERA Not Available Start: 03-08-2024 End: 03-08-2024 ambulatory RYAN BREEN Not Available Start: 11-23-2022 End: 11-23-2022 ambulatory eDon Funez Other [facility] Other Start: 11-23-2022 Encounter for genera l adult medical examination without abnormal findings Deon Funez [facility] Start: 11-23-2022 Periodic preventive med est patient 40-64yrs Deon Funez [facility] Start: 05-11-2022 End: 05-11-2022 ambulatory Deon Funez Other [facility] Other Start: 05-11-2022 Office outpatient vi sit 15 minutes Deon Funez [facility] Start: 05-02-2022 End: 05-03-[address] DEON FUNEZ Facility:[facility] Start: 02-04-2022 End: 02-04-2022 ambulatory Deon Funez Other [facility] Other Start: 02-04-2022 Telephone encounter Deon Funez [facility] Start: 10-21-2021 End: 10-21-2021 ambulatory Deon Funez Other [facility] Other Start: 10-21-2021 Encounter for genera l adult medical examination without abnormal findings Deon Funez [facility] Start: 10-21-2021 Periodic preventive med est patient 40-64yrs Deon Funez [facility] Start: 10-11-2021 End: 10-12-[address] DEON FUNEZ Facility:[facility] Start: 08-06-2021 End: 08-06-2021 ambulatory Deon Funez Other [facility] Other Start: 08-06-2021 Telephone encounter Deon Funez [facility] Start: 03-11-2021 End: 03-11-2021 ambulatory Deon Funez Other [facility] Other Start: 03-11-2021 Office outpatient vi sit 15 minutes Deon Funez [facility] Start: 02-17-2021 End: 02-17-2021 ambulatory Deon Funez Other [facility] Other Start: 02-17-2021 Telephone encounter Deon Funez [facility] Start: 02-13-2021 End: 02-13-2021 ambulatory Deon Funez Other [facility] Other Start: 02-13-2021 Telephone encounter Deon Funez [facility] Start: 02-12-2021 End: 02-12-2021 ambulatory Adina Mirian Other [facility] Other Start: 02-12-2021 Office outpatient vi sit 15 minutes Adina Vela [facility] Start: 02-12-2021 Telephone encounter Deon Funez [facility] Procedures Date Procedure Procedure Detail Performing Clinician Start: 10-11-[address] DEON FUNEZ Comment on above: Performed By: #### [facility] #### [facility] [address] [place] [address] Dr. Puja Leonard Screening for malign ant neoplasm of colon [facility] Other Immunizations Immunization Date Immunization Notes Care Provider Riaz teague 09-04-2022 zoster vaccine recombinant Deon Funez Other [facility] Other 05-16-2022 zoster vaccine recombinant Deon Funez Other [facility] Other 05-11-2022 Shingrix 50 MCG/0.5M L; Translations: [Shingrix 50 MCG/0.5ML] Deon Funez Other [facility] Other 01-25-2021 COVID-19 Vaccine Moderna - Documentation Purposes Only Adina Vela Other [facility] Other 06-02-2020 COVID-19 Vaccine Moderna - Documentation Purposes Only Adina Veal Other [facility] Other 05-06-2020 COVID-19 Vaccine Moderna - Documentation Purposes Only Adina Vela Other [facility] Other 11-17-2019 influenza, seasonal, injectable Adina Vela Other [facility] Other 08-05-2015 tetanus toxoid, redu wale diphtheria toxoid, and acellular pertussis vaccine, adsorbed Adina Vela Other [facility] Other Payers Date Payer Category Payer Unknown [id number] [id number] [id number] 1960 Unknown [id number] 2.16.84 [id number] 1960 Unknown [id number] 2.16.84 [id number] 1959 Unknown [id number] [id number] [id number] 1960 Unknown [id number] Unknown [id number] Social History Date Type Detail Facility Sex Assigned At [facility] Other Clinical Notes 02-12-2021 to 11-23-2022 Note Date & Type Note Facility 11-23-2022 Evaluation note Encounter Date Diagnosis Assessment Notes Nov, Hyperlipidemia (ICD-10 - E78.5) Discussed cholesterol results with patient today. Total is 178. HDL is 80. LDL is 88. Triglycerides are 52. VLDL is 10.4. He admits that he has been misbehaving since he was last seen and has not been eating well. I did recommend that he watch his intake of carbs and sugars. Stay active. Nov, Wellness examination (ICD-10 - Z00.00) I did sign his wellness form for him today. Nov, Hyperglycemia (ICD-10 - R73.9) Discussed blood sugar results with patient today. Glucose is 104. HgA1C is 5.5 which is normal. He admits that he had ice cream a few times this year, but he really indulged in smore's this summer. We discussed that this may affect his A1C result because there is a delay to that test. He will cut back on his intake of these type of foods. Nov, Nocturia (ICD-10 - R35.1) Nov, Prostate cancer screening (ICD-10 - Z12.5) His PSA is 0.69 no sign of prostate cancer at this time. Nov, GERD (gastroesophageal reflux disease) (ICD-10 - K21.9) He is to continue with above medication daily as directed. Nov, Weight loss (ICD-10 - R63.4) He has not gained any weight since he was last seen here. Nov, Hypertension (ICD-10 - I10) His blood pressure is controlled. Continue with above medication as directed. Nov, Other retirement (current) drug therapy (ICD-10 - Z79.899) Nov, Allergic rhinitis (ICD-10 - J30.9) Continue with above medication as needed. [facility] Other 03-20-2023 Evaluation note* Encounter Date Diagnosis Assessment Notes Treatment Notes Treatment Clinical Notes Apr, Hyperlipidemia (ICD-10 - E78.5) Discussed cholesterol results with patient today. Total is 186. HDL is 79. LDL is 94.8. Triglycerides are 61. VLDL is 12.2. I would like him to continue with above medication daily as directed. Continue to monitor intake of carbs and sugars. Stay active. Apr, Hyperglycemia (ICD-10 - R73.9) Discussed blood sugar results with patient today. Glucose is 109. A1C is up from 5.5 to 5.6. His result is at the high end of normal. He admits that he loves cake. I did recommend that he cut back on his intake of cake, sugars, sweets. Stay active. Apr, Hypertension (ICD-10 - I10) His blood pressure is controlled. Continue with above medication daily as directed. Apr, GERD (gastroesophageal reflux disease) (ICD-10 - K21.9) Continue with above medication daily as directed. Apr, Other retirement (current) drug therapy (ICD-10 - Z79.899) Apr, Nocturia (ICD-10 - R35.1) Apr, Weight loss (ICD-10 - R63.4) His TSH is normal at 2.403. Apr, Other He saw Dr. Patel for his hip in the fall (2021) but was not given an injection the second time he was seen, only the first time he was seen. He was given tips on what to do for the hip the second time he was seen. He had an xray done the second time and was advised that if the hip continued to bother him that he would order physical therapy. He was told he had some arthritis. He was able to walk miles and miles in [facility] in Mar (2022) without any trouble with his hip. He voices that he did recover from COVID-19 after having this illness in Jan (2021). [facility] Other 12-14-2022 Evaluation note* Encounter Date Diagnosis Assessment Notes Treatment Notes Treatment Clinical Notes Jan, Fever (ICD-10 - R50.9) Rest, Tylenol as needed. Jan, COVID-19 (ICD-10 - U07.1) He voices that he tested himself for COVID-19 this morning and it was positive. He does have a low grade fever. We discussed Paxlovid today, if he were to take this he would have to hold his statin until he is finished with the Paxlovid. Side effects/risks/benef its of Paxlovid were reviewed. He was advised that there is a chance he can get rebound COVID-19 from the Paxlovid. He would like to take Paxlovid. Guidance is given on how to take the medication. He is encouraged to rest, push fluids. Any trouble breathing or concerns go to the ER for evaluation. Right now he does not want an inhaler. He needs to stay quarantined and isolated for five days, if feeling better he can re-enter public but should wear a mask for an additional five days. Jan, Fatigue (ICD-10 - R53.83) Jan, Muscle ache (ICD-10 - M79.10) Jan, Cough (ICD-10 - R05.9) He does not feel tight in his chest, voices that it is painful to cough. If he begins to feel tight in the chest then he should let me know. Right now he declines to have an inhaler on hand. Jan, Other 9:01 AM - 9:07 AM [facility] Other 08-30-2022 Evaluation note* Encounter Date Diagnosis Assessment Notes Treatment Notes Treatment Clinical Notes Sep, Hypertension (ICD-10 - I10) His blood pressure is controlled, continue with above medications daily as directed. Sep, Wellness examination (ICD-10 - Z00.00) He is here for a wellness exam today. After evaluation I did sign his wellness form. Sep, Hyperlipidemia (ICD-10 - E78.5) Discussed cholesterol results with patient today. Total is 176. HDL is 81. LDL is 75.8. Triglycerides are 96. He is encouraged to continue with what he is doing as it is working well. Stay active. We discussed a coronary calcium score which is a CT scan of the coronary arteries. He is able to be active without chest pain. He is on a high dose statin and his readings are at goal. Right now I do not feel this is indicated for him, he is comfortable with this. Sep, Hyperglycemia (ICD-10 - R73.9) Discussed blood sugar results with patient today. Glucose is 111. HgA1C is normal at 5.5. He is to continue to monitor his intake of carbs and sugars. Stay active. Sep, Prostate cancer screening (ICD-10 - Z12.5) PSA is 0.61 no sign of prostate cancer at this time. He does not follow with Dr. West any longer. Sep, Nocturia (ICD-10 - R35.1) Sep, GERD (gastroesophageal reflux disease) (ICD-10 - K21.9) Continue with above medication daily as directed. Sep, Allergic rhinitis (ICD-10 - J30.9) Continue with above medications as directed. Sep, Hip pain, left (ICD-10 - M25.552) He voices that if he lays flat on his back it does not hurt, but if he lies on his side it bothers his hip. If he stretches the hip it will hurt. He does not have anything in his back or sciatica. On exam, he is told that he may have an issue in the bursa. He may have greater trochanteric bursitis, it does not appear to be an actual hip issue. He denies any groin pain and can walk for miles before he gets minimal hip pain. I did explain to him that an resource specialist teacher can do an injection in the bursa sac to provide him with relief if needed. He would like a referral, voices that this issue is causing him to lose sleep. I will refer him to Dr. Patel. Sep, Weight loss (ICD-10 - R63.4) He has lost 1.5 pounds since last seen. 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 Reassurance given. [facility] Other 01-18-2022 Evaluation note* Encounter Date Diagnosis Assessment Notes Treatment Notes Treatment Clinical Notes Feb, Hyperlipidemia (ICD-10 - E78.5) Discussed cholesterol results with patient today. Total is 194. HDL is 85. LDL is 96.4. Triglycerides are 63. Readings are at goal. He is encouraged to continue with above medications daily as directed. He does not want his appointments scheduled during the holidays so I will have him get lab repeated in September and see him back in late September (2021) and every six months from there on. He is in agreement to this plan. Feb, Hyperglycemia (ICD-10 - R73.9) Discussed blood sugar results with patient today. Glucose is 95. HgA1C is 5.7 which is at the higher end of normal but unchanged since last checked. He is to continue to monitor his intake of carbs and sugars. Stay active. Feb, Nocturia (ICD-10 - R35.1) Feb, Allergic rhinitis (ICD-10 - J30.9) Continue with above medications as needed. Feb, Hypertension (ICD-10 - I10) Blood pressure is controlled. Continue with above medications daily as directed. Feb, Other retirement (current) drug therapy (ICD-10 - Z79.899) Feb, Prostate cancer screening (ICD-10 - Z12.5) Feb, Weight gain (ICD-10 - R63.5) His TSH is 1.635 which is normal. Feb, Other He was ill at t he end of Jan (2020) and was tested for COVID-19 but it was negative. He voices that he has never been diagnosed with COVID-19. He has been vaccinated for COVID-19. [facility] Other 12-22-2021 Evaluation note* Encounter Date Diagnosis Assessment Notes Treatment Notes Treatment Clinical Notes Jan, Contact with and (suspected) exposure to other viral communicable diseases (ICD-10 - Z20.828) Jan, Acute sinusitis, recurrence not specified, unspecified location (ICD-10 - J01.90) Drink plenty fluids, get plenty of rest. Use your Flonase inhaler, 2 sprays to each nostril daily until your symptoms improve. Take the prednisone as prescribed until gone. Call your doctor tomorrow and request a PCR Covid test. Follow-up with your doctor if no improvement in 2 to 3 days. Quarantine until you receive results of your Covid PCR test Jan, Other Additional time spent conducting pre-visit phone call, screening for symptoms, instructions on social distancing, application and removal of PPE, and cleaning of examination room, equipment and supplies was preformed. Patient education given for testing methodology and results. Patient care instructions given in writting by [facility] Care At Home document. [facility] Other Evaluation noteNo InformationNortNational Recovery Services Other Evaluation noteNortNational Recovery Services Other History general Narrative - Reported* Type Description Date Medical History Brain Stem STROKE-1996- age 36 Medical History HYPERLIPIDEMIA-TRIGLYCERIDES Medical History History of Immune Thrombocytopen ia [place] Medical History saw Dr. 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 Marquez, normal repeat in 10 years Surgical History CYST REMOVED FROM GROIN AREA-TE STICLES 2004 Surgical History [facility] 2015 Surgical History Colonoscopy - [facility] - Dr Marquez - repeat in 10 03-04-2015 Hospitalization History see above [facility] Other [facility]udk[facility] - [facility] Other History general Narrative - Reported* Type Description Date Medical History Brain Stem STROKE-1996- age 36 Medical History HYPERLIPIDEMIA-TRIGLYCERIDES Medical History History of Immune Thrombocytopen ia [place] Medical History saw Dr. 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 Marquez, normal repeat in 10 years Surgical History CYST REMOVED FROM GROIN AREA-TE STICLES 2004 Surgical History [facility] 2015 Surgical History Colonoscopy - [facility] [place] - Dr Marquez - repeat in 202503-04-2015 Hospitalization History see above [facility] Other Reason for Referral Reason appt pt needs cons ult to evaluate possible bursitis left hip Diagnosis 1 Hip pain, left (M25. 552) Referral Organization [facility] Jhonatan Miller Referring Provider First Name Deon Referring Provider Last Name Armin Referring Provider Specialty Family Prac yeimi Referred Organization [facility] Referred Provider Jonathan Patel Referred Address ,[place], [place] Referred Provider Specialty Orthopedic S urgery Referral Priority Routine General Notes Yina Padilla 10/21/2021 11:18:24 AM > referral was sent p2p and hard faxed with visit note and insurance card. pt understands he will be contacted to schedule this appt. Summary Purpose Family History No Family History Records FoundNo Family History Records Found Advance Directives No Advanced Directives Records FoundNo Advanced Directives Records Found Additional Source Comments REASON FOR VISIT (unrecogniz ed section and content) #27 RED CHEVY, CONGESTION, S ORE THROAT, FATIGUENo InformationNo Informationreview labsrx Atorvastatinreview labsfever/fatigue/congestionreview labsreview labs (unrecognized sect ion and content) No Status Records FoundNo Status Records Found INFORMATION SOURCE (unrecogn ized section and content) DATE CREATED AUTHOR 05/06/2022 [facility] DATE CREATED AUTHOR AUTHOR'S SHREYAS ATNIKO 04/15/2024 [facility] EPIC FOR RECORDS PERTAINING TO PATIENTS WHO ARE OR HAVE BEEN ENROLLED IN A CHEMICAL DEPENDENCY/SUBSTANCEABUSE PROGRAM, SOME INFORMATION MAY BE OMITTED. This clinical summary was aggregated from multiple sources. Caution should be exercised in using it in the provision of clinical care. This summary normalizes information from multiple sources, and as a consequence, information in this document may materially change the coding, format and clinical context of patient data. In addition, data may be omitted in some cases. CLINICAL DECISIONS SHOULD BE BASED ON THE PRIMARY CLINICAL RECORDS. [facility]. provides no warranty or guarantee of the accuracy or completeness of information in this document.
[2024-06-10 07:03] LABS: Basophils Absolute Auto 0.1 10^3/uL (0.0-0.1); Eosinophils Absolute Auto 0.3 10^3/uL (0.0-0.7); Eosinophils Percent Auto 6.5 % (0.9-7.0); Hematocrit 44.6 % (42.0-54.0); Hemoglobin 15.3 g/dL (14.0-18.0); Immature Granulocytes Abs Auto 0.01 10^3/uL (0.00-0.03); Immature Granulocytes Pct Auto 0.2 % (0.0-0.5); Lymphocytes Absolute Auto 1.5 10^3/uL (1.2-3.8); Lymphocytes Percent Auto 29.5 % (20.5-60.0); Mean Corpuscular HGB Conc 34.3 g/dL (29.9-35.2); Mean Corpuscular Hemoglobin 30.7 pg (25.9-34.0); Mean Corpuscular Volume 89.4 fL (80.0-94.0); Mean Platelet Volume 9.2 fL (9.5-13.5); Monocytes Absolute Auto 0.6 10^3/uL (0.3-0.8); Monocytes Percent Auto 12.6 % (1.7-12.0); Neutrophils Absolute Auto 2.5 10^3/uL (1.4-6.5); Neutrophils Percent Auto 50.2 % (43.0-75.0); Platelet Count 222 10^3/uL (150-450); Red Blood Count 4.99 10^6/uL (4.70-6.10); Red Cell Distribution Width 12.2 % (11.0-15.0); White Blood Count 4.9 10^3/uL (4.0-11.0)
[2024-06-10 07:22] LABS: Alanine Aminotransferase 30 U/L (16-63); Albumin Globulin Ratio 1.2; Albumin Level 3.7 g/dL (3.4-5.0); Alkaline Phosphatase 58 U/L (46-116); Anion Gap 11.9; Aspartate Amino Transferase 22 U/L (15-37); BUN Creatinine Ratio 18.8; Bilirubin Total 0.4 mg/dL (0.2-1.0); Calcium 9.1 mg/dL (8.5-10.1); Carbon Dioxide 29.5 mmol/L (21.0-32.0); Chloride 106 mmol/L (98-107); Cholesterol 172 mg/dL (<=200); Estimated Average Glucose 114 mg/dL; Estimated GFR (African America >60 (>=60 mL/min/1.73m^2); Estimated GFR (Non-African Ame >60 (>=60 mL/min/1.73m^2); Glucose 105 mg/dL (74-106); Glycohemoglobin A1C 5.6 % (4.5-6.2); HDL Cholesterol 87 mg/dL (40-60); Potassium 4.4 mmol/L (3.5-5.1); Sodium 143 mmol/L (136-145); Thyroid Stimulating Hormone 2.195 uIU/mL (0.358-3.740); Total Protein 6.7 g/dL (6.4-8.2); Triglycerides 53 mg/dL (<=150); VLDL CHOLESTEROL 10.6 mg/dL
== END 2024-06-10 06:38 | disposition home or self-care (01) ==
LOC: LAB 06:38
PROVIDERS: PCP Family Medicine; Visit Provider Family Medicine
DX: R73.9 Hyperglycemia, unspecified (principal); Z79.899 Other long term (current) drug therapy; E78.5 Hyperlipidemia, unspecified; R63.4 Abnormal weight loss
CPT/HCPCS: 36415; 80053; 80061; 83036; 84443; 85025

== ENCOUNTER 2024-12-12 06:19 | Outpatient (OUT) | payer MEDICARE, OTHER, SELFPAY ==
--- OUTSIDE RECORDS SUMMARY | 2024-12-12 06:29 | XMS_ITS | Clinical Summary ---
Author Organization [facility] Healthcare Address [address] [address] Care Team Providers Care Traffic Workforce Representative Name Role Phone Michel Medellin MD Primary Care Provider [phone] Allergies Active AllergyReactionsCriticalityNoted DateCommentsMixed RagweedRunny nose 04/13/20242477OdrosultlquDeuaKbi04/21/2015 Other Reaction(s): Unknown Medications MedicationSigDispense QuantityRefillsLast FilledStart DateEnd DateStatus amLODIPine (Norvasc) 10 MG tablet Take 10 mg by mouth DailyActive ascorbic acid (Vitamin C) 500 MG tablet Take 500 mg by mouth in the morning.Active aspirin 325 MG tablet 1 (one) time each day at the same timeActive atorvastatin (Lipitor) 40 MG tablet Take 40 mg by mouth at bedtimeActive benazepril (Lotensin) 20 MG tablet Take 20 mg by mouth DailyActive erythromycin (Romycin) 5 MG/GM ophthalmic ointment APPLY 1/4' TO LIDS LASHES EVERYDAY AT SAZYGNE7907/28/2023ctive famotidine (Pepcid) 20 MG tablet TAKE 1 TABLET BY MOUTH EVERY DAY IN THE MORNING AND TAKE 1 TABLET EVERY DAY IN THE EVENINGActive Multiple Vitamin (Multi Vitamin) tablet 1 (one) time each day at the same timeActive nabumetone (Relafen) 500 MG tablet every 12 (twelve) hours01/27/2022ctive omeprazole (PriLOSEC) [address] capsule TAKE ONE CAPSULE BY MOUTH EVERY DAY 30 MINUTES BEFORE EVENING MEAL Oral for 90 DaysActive ciclopirox (Loprox) 0.77 % cream Indications:Other seborrheic dermatitisApply thin layer to affected area once a day, 30 day supply 90 g 1102/20/2025Active triamcinolone (Kenalog) 0.1 % cream Indications:Other atopic dermatitisApply to affected areas, up to twice a day when flared, do not use one the face, groin, or underarms, 30 day supply 454 g 5Active Social History Tobacco UseTypesPacks/DayYears UsedDateSmoking Tobacco: Unknown Tobacco Cessation:Counseling Given: Not Answered Sex and Gender InformationValueDate RecordedSex Assigned at CffzcCewr30/12/2025 3:44 PM ESTLegal SssGaga1505/06/2022 6:41 PM EDTGender IdentityChoose not to /12/2025 3:44 PM ESTSexual OrientationNot on file Last Filed Vital Signs Vital SignReadingTime TakenCommentsBlood Pressure--Pulse--Temperature-- Respiratory Rate--Oxygen Saturation--Inhaled Oxygen Concentration--Mzqpnj14.7 kg (189 lb)11/04/2021 12:00 PM AKLFnildv087.8 cm (5' 10 )11/04/2021 12:00 PM EDT Body Mass Index27.1209 12:00 PM EDT Plan of Treatment DateTypeDepartmentCare Team (Latest Contact Info)Eqmfdyweebl41/24/2026 11:00 AM ESTOffice Visit [facility] [address] [place] [id number] Sara France MD [address] [place] [address] 08/06/2025 10:00 AM EDTOffice Visit [facility] [address] [place] [phone] Kirsten Bennett, IVY [address] [place], [place] [id number] Insurance * Guarantor: Curtis Scott TypeRelation to PatientDate of BirthPhone Billing AddressPersonal/LpcmsrQhkw[birth year][address] [address] Care Teams Team MemberRelationshipSpecialtyStart DateEnd Date Michel Medellin MD [address] [place] [id number] PCP - General03/05/24
--- OUTSIDE RECORDS SUMMARY | 2024-12-12 06:29 | XMS_ITS | Clinical Summary ---
Author Organization [facility] Address [address] [place], [place] [id number] Care Team Providers Care Maintenance Man Name Role Phone Michel Medellin DO Primary Care Provider [phone] Allergies Active AllergyReactionsCriticalityNoted WlddHalwasblYnoavmrmnmnUyro80/21/2015 Medications MedicationSigDispense QuantityRefillsLast FilledStart DateEnd DateStatus atorvastatin (LIPITOR) 20 mg tablet Take 20 mg by mouth once daily.07/30/2014ctive fluticasone (FLONASE) 50 mcg/actuation nasal spray Use 2 Sprays in the nose once daily.07/30/2014ctive omeprazole (PRILOSEC) 20 mg capsule Take 20 mg by mouth once daily.08/26/2014ctive aspirin 325 mg tablet Take 325 mg by mouth twice daily.Active MULTIVITAMIN ORAL Take by mouth once daily.Active ascorbic acid (VITAMIN C) 500 mg tablet Take 500 mg by mouth once daily.Active Active Problems ProblemNoted DateDiagnosed DateHyperlipidemiaStroke Overview (09/11/2014): brain stem Chest painGERD (gastroesophageal reflux disease) Family History Medical HistoryRelationCommentsHeartBrother 3pacemakerDiabetesBrother 4COPD FatherTIA [Other]FatherTIA [Other]Motherdementia [Other]MotherHeartSon 2 hypotension, AV blockRelationStatusCommentsBrother 1AliveBrother 2AliveBrother 3 Brother 4FatherDeceasedMotherAliveSon 1AliveSon 2 Social History Tobacco UseTypesPacks/DayYears UsedDateSmoking Tobacco: FormerCigarettes 02/22/1978 - 02/23/1984CigarsSmokeless Tobacco: NeverAlcohol UseStandard Drinks/WeekCommentsNo0 (1 standard drink = 0.6 oz pure alcohol)Sex and Gender InformationValueDate RecordedSex Assigned at BirthNot on fileLegal SexMale 08/01/2014 8:35 AM EDTGender IdentityNot on fileSexual OrientationNot on file Last Filed Vital Signs Vital SignReadingTime TakenCommentsBlood Vuasclpb876/9109/18/2014 10:38 AM EDT Fumnl314409/18/2014 10:38 AM ORKNntjmgbsrqi55.6 ??C (99.6 ??F)09/18/2014 10:38 AM EDTRespiratory Ixdl943709/18/2014 10:38 AM EDTOxygen Sdhmlvmjye00%09/18/2014 10:38 AM EDTInhaled Oxygen Concentration--Lidnlx61.6 kg (182 lb)09/18/2014 10:38 AM KHNNkxhro761.3 cm (5' 11 )09/18/2014 10:38 AM EDTBody Mass Index25.38009/18/2014 10:38 AM EDT Plan of Treatment Health MaintenanceDue DateLast DoneCommentsAbdominal Aortic Aneurysm Screening 1959Anxiety Adxbkrjbz97/23/1978Depression Bktmclrna81/23/1978HIV Screening 09/13/1977Hepatitis C Wwxgwtkju38/23/1978DTaP,Tdap,Td Vaccine (1 - Tdap) 09/13/1978Lipid Qvgpqdnxr27/23/1995CT Dlolelmvhizz98/23/2005Cologuard (FIT-DNA) 09/13/20044909Unabwcoekkn40/23/2005Colorectal Cancer Hgedrbdlv94/23/2005Diabetes Udlijcpkc09/23/2005Fecal Occult Blood09/13/2004Prostate Cancer Screening Ometbcmezn57/23/8334Tqgwxxypyhlhs14/23/2005Pneumococcal Vaccine: 50+ (1 of 1 - PCV)09/13/2009Shingrix Vaccine (1 of 2)09/13/2009dvance Directive Discussion 09/13/2024ovid-19 Vaccine (1 - 2024- season)2024Influenza Vaccine (#1) 2024RSV Vaccine (1 - 1-dose 75+ series)09/13/2034 Insurance Care Teams Team MemberRelationshipSpecialtyStart DateEnd Date Michel Medellin DO [address] [place] [address] PCP - GeneralFamily Medicine08/01/14
--- OUTSIDE RECORDS SUMMARY | 2024-12-12 06:30 | XMS_ITS | CCD ---
Author Organization [facility] Care Team Providers Care Color Television Console Monitor Name Role Phone MirianAdina Unavailable Deon Funez Unavailable ARMIN, DR CHAVARRIA Consulting Unavailable ARMIN, DR CHAVARRIA Attending Unavailable GIRDAYDAY, DR CHAVARRIA Admitting Unavailable GIRDAYDAY, DR CHAVARRIA Primary Care Unavailable GIRDAYDAY, DR CHAVARRIA Consulting Unavailable GIRDAYDAY, DR CHAVARRIA Attending Unavailable GIRDAYDAY, DR CHAVARRIA Admitting Unavailable GIRDAYDAY, DR CHAVARRIA Primary Care Unavailable FOREIGN RIVERA Attending Unavailable RYAN BREEN Attending Unavailable RYAN BREEN Attending Unavailable Allergies Allergy ClassificationReported Allergen(s)Allergy TypeDate of OnsetReaction(s) Facility (10 sources)Penicillin; Translations: [penicillin]Drug AllergyFisher[facility] Medications Current Medications MedicationDrug Class(es)DatesSig (Normalized)Sig (Original)Jaleesa-D 12 Hour (10 sources)Jaleesa-D 12 Hour prn Iul-CxtfcnWnkhhrr-N 12 Hour prn Active amLODIPine 10 mg oral tablet (14 sources)Dihydropyridine Calcium Channel BlockerStart: 47-57-4509kwlf 1 tablet by mouth once dailyAmlodipine 10 mg tablet Active 10 MG PO Daily June 14, 2024 3:47pmStart: 05-13-2023 End: 71-99-3316wydn 1 tablet by mouth once dailyAmlodipine 10 mg tablet Discontinued 0 .ROUTE .COMPLEX 90 May 10, 2024 8:03am June 14, 2024 3 :48pm TAKE 1 TABLET BY MOUTH EVERY DAYStart: 05-13-2023 End: 19-29-6228xsec 1 tablet by mouth once dailyAmlodipine 10 mg tablet Discontinued 1 TAB PO Daily May 13, 2023 12:00am May 13, 2023 8:52am FreeTextSig: TAKE 1 TABLET BY MOUTH EVERY DAY; Note: Source Status: Continue; Provider: Armin Chavarria ( )take 1 tablet by mouth once daily amLODIPine Besylate 10 MG TAKE 1 TABLET BY MOUTH EVERY DAY Activeaspirin 325 mg oral tablet (11 sources)Platelet Aggregation Inhibitor, Nonsteroidal Anti-inflammatory Drug Start: 18-21-2345zrat 1 tablet by mouth once dailyAspirin 325 mg tablet Active 325 MG PO Daily May 31, 2023 12:00amtake 1 tablet by mouth once dailyAspirin 325 mg 325 mg one tab orally daily Activeatorvastatin 40 mg oral tablet (14 sources)HMG-CoA Reductase InhibitorStart: 40-04-0567jbdo 1 tablet by mouth once daily at bedtimeAtorvastatin 40 mg tablet Active 40 MG PO Daily at bedtime June 14, 2024 3:48pmStart: 09-06-2023 End: 34-55-6577utuj 1 tablet by mouth once daily at bedtimeAtorvastatin 40 mg tablet Discontinued 0 .ROUTE .COMPLEX February 11, 2024 8:34am June 14, 2024 3:48pm TAKE 1 TABLET BY MOUTH EVERYDAY AT BEDTIMEStart: 05-31-2023 End: 10-59-0720tduj 1 tablet by mouth once daily at bedtimeAtorvastatin 40 mg tablet Discontinued 1 TAB PO Daily at bedtime May 31, 2023 12:00am September 06, 2023 10:29am FreeTextSig: TAKE 1 TABLET BY MOUTH EVERYDAY AT BEDTIME; Note: Source Status: Continue; Provider: Armin Chavarria ( )take 1 tablet by mouth once daily at bedtimeAtorvastatin Calcium 40 MG TAKE 1 TABLET BY MOUTH EVERYDAY AT BEDTIME Activetake 1 tablet by mouth once daily at bedtime Atorvastatin Calcium TAKE 1 TABLET BY MOUTH EVERYDAY AT BEDTIME for 90 days Activebenazepril hydrochloride 20 mg oral tablet (13 sources)Angiotensin Converting Enzyme InhibitorStart: 05-31-2023 End: 32-19-3642xhyl 1 tablet by mouth once dailyBenazepril 20 mg tablet Active 20 MG PO Daily February 11, 2024 8:34amtake 1 tablet by mouth once daily Benazepril HCl 20 MG TAKE 1 TABLET BY MOUTH EVERY DAY Activeciclopirox 7.7 mg/ml topical cream (1 source)Start: 82-23-3234Rtwxtyrpff 0.77 % cream Active APPLIC TOPICAL June 14, 2024 12:00amfamotidine 20 mg oral tablet (13 sources)Histamine-2 Receptor AntagonistStart: 30-35-4625tivl 1 tablet by mouth twice dailyFamotidine 20 mg tablet Active 20 MG PO Twice daily December 13, 2023 4:40pmStart: 09-20-2023 End: 53-26-5638swty 1 tablet by mouth once daily in the morning, then take 1 tablet by mouth once daily in the eveningFamotidine 20 mg tablet Discontinued 0 .ROUTE .COMPLEX 180 September 20, 2023 3:37pm December 13, 2023 4:42pm TAKE 1 TABLET BY MOUTH EVERY DAY IN THE MORNING AND TAKE 1 TABLET EVERY DAY IN THE EVENINGStart: 05-31-2023 End: 12-08-5675jyjl 1 tablet by mouth twice dailyFamotidine 20 mg tablet Discontinued 20 MG PO Twice daily May 31, 2023 12:00am September 20, 2023 3:37pm take 1 tablet by mouth once daily in the morning, then take 1 tablet by mouth once daily in the eveningFamotidine 20 MG TAKE 1 TABLET BY MOUTH EVERY DAY IN THE MORNING AND TAKE 1 TABLET EVERY DAY IN THEEVENING Xxvmhh54 hr fexofenadine hydrochloride 60 mg / pseudoephedrine hydrochloride 120 mg extended release oral tablet (1 source)alpha-Adrenergic Agonist, Histamine-1 Receptor AntagonistStart: 75-17-7278qijl 1 tablet by mouth every twelve hours as needed, then take 1 tablet by mouth every twelve hoursas neededFexofenadine-Pseudoephedrine (Jaleesa-D 12 Hour) 60-120 mg tablet extended release 12 hr Active 1 TAB PO Every 12 hours as needed May 31, 2023 12:00amfluticasone propionate 0.05 mg/actuat metered dose nasal spray (11 sources)CorticosteroidStart: 03-33-7445nkee 1-2 spray(s) nasal route once daily as neededFluticasone Propionate 50 mcg/actuation spray,suspension Active 2 SPRAY INTRANASAL Daily as needed December 13, 2023 12:00am USE 1-2 SPRAYS INTO EACH NOSTRIL ONCE DAILY;take 1-2 spray(s) nasal route once daily as needed Fluticasone Propionate 50 MCG/ACT USE 1-2 SPRAYS INTO EACH NOSTRIL ONCE DAILY prn Not-Takingtake 1-2 spray(s) nasal route once daily as neededFLONASE 50 mcg 1-2 sprays each NOSTRIL nasally qd prn Activeglucosamine sulfate 1000 mg oral capsule (11 sources)Start: 68-92-0405qjqq 1 capsule by mouth once dailyGlucosamine Sulfate 1,000 mg capsule Active 1000 MG PO Daily May 31, 2023 12:00am administer with a mealGlucosamine OTC pt. takes 1,000 mg daily Activemelatonin 3 mg oral tablet (4 sources)take 1 tablet by mouth at bedtime as neededMelatonin 3 MG 1 tablet at bedtime as needed with food Orally prn prn Activemometasone furoate 1 mg/ml topical cream (4 sources)CorticosteroidStart: 05-31-2023 End: 06-60-5764Dbaignirhk 0.1 % cream Active APPLIC TOPICAL Daily as needed December 13, 2023 4:41pm APPLY 1 APPLICATION EXTERNALLY EVERY DAY;Start: 73-38-3462Smlimgxoqr Furoate 0.1 % 1 application Externally Once a day Apr, ActiveMultivitamin Adults 50+ (10 sources)Multivitamin Adults 50+ Orally ActiveMultivitamin tablet (1 source)Start: 84-99-3756oizk 1 tablet by mouth once dailyMultivitamin tablet Active 1 TAB PO Daily May 31, 2023 12:00ampredniSONE 20 mg oral tablet (4 sources)Start: 02-36-9125hxve 1 tablet by mouth every twelve hourspredniSONE 20 MG 1 tablet Orally bid for 5 day(s) Jan, Activetriamcinolone acetonide 1 mg/ml topical cream (1 source)CorticosteroidStart: 77-62-4788Mzvlxjxtjtiwa Acetonide 0.1 % cream Active APPLIC TOPICAL June 14, 2024 12:00am{20 (nirmatrelvir 150 MG Oral Tablet) / 10 (ritonavir 100 MG Oral Tablet) } Pack [Paxlovid 5-Day] (1 source)Start: 79-50-5200Iislmlqs (300/100) 20 x 150 MG & 10 x 100MG as directed Orally Twice a day for 5 day(s) Active Completed/Discontinued Medications MedicationDrug Class(es)DatesSig (Normalized)Sig (Original)methylPREDNISolone (5 sources)CorticosteroidStart: 41-11-2953Btzk-Medrol 40 mg Apr, 60 mg Problems Active Problems Problem ClassificationProblemDateDocumented DateEpisodic/ChronicAcute cerebrovascular disease (11 sources)Cerebral infarction; Translations: [Cerebral infarction, unspecified]31-73-0849MewfukzIxbarjf on above:1998- age 36Adjustment disorders (10 sources)Reaction to severe stress, unspecified; Translations: [Stress] ChronicAnxiety disorders (11 sources)Anxiety; Translations: [Anxiety disorder, unspecified]05-31-2023 ChronicDiabetes mellitus without complication (7 sources)Hyperglycemia, unspecified; Translations: [Hyperglycemia]Onset: 03-11-2021 Resolved: 72-55-9871ZxdxayffSfjytlzah of lipid metabolism (20 sources)Hyperlipidemia; Translations: [Hyperlipidemia, unspecified]Onset: 03-11-2021 Resolved: 18-63-2476AjbxvoeJpqrcfyqcl disorders (14 sources)Gastroesophageal reflux disease; Translations: [Gastro-esophageal reflux disease without esophagitis]Onset: 10-21-2021 Resolved: 77-10-1780ZqjdbwkFkzugtgff hypertension (20 sources)Elevated blood pressure; Translations: [Essential (primary) hypertension]Onset: 03-11-2021 Resolved: 38-37-9153YdsjvxiAdeow of unknown origin (2 sources)Fever, unspecifiedOnset: 02-13-2021 Resolved: 00-44-2590HfdtjmaoDjnymzbpfahyy symptoms and ill-defined conditions (6 sources)Nocturia; Translations: [Nocturia]Onset: 03-11-2021 Resolved: 05-95-9816WqdqmymqZshbkhv and fatigue (1 source)Other fatigueEpisodicOther aftercare (5 sources)Other ferry terminal agent (current) drug therapy; Translations: [OTH INTERMEDIATE CURRENT DRUG THERAPY]Onset: 03-11-2021 Resolved: 64-74-8609VzyqpikwEqcdd aftercare (1 source)Long-term current use of drug therapy; Translations: [Other skilled nursing (current) drug therapy]68-42-2014BavtwfjgDzdrk connective tissue disease (1 source)Myalgia, unspecified siteEpisodicOther ear and sense organ disorders (1 source)Impacted cerumen; Translations: [Impacted cerumen, bilateral] 38-93-4512RggrrhkdOqfpt ear and sense organ disorders (1 source)Tinnitus; Translations: [Tinnitus, unspecified ear]41-56-3496Vqpmxsqw Other nutritional; endocrine; and metabolic disorders (2 sources)Abnormal weight gain; Translations: [Abnormal weight gain]Onset: 03-11-2021 Resolved: 81-19-3366PzykaimpTwmxl nutritional; endocrine; and metabolic disorders (4 sources)Abnormal weight loss; Translations: [ABNORMAL WEIGHT LOSS]Onset: 10-21-2021 Resolved: 49-75-7630FwyjrylxRkmim nutritional; endocrine; and metabolic disorders (1 source)Intentional weight dygp10-33-3814LgudvfapMbxub nutritional; endocrine; and metabolic disorders (1 source)Weight increased; Translations: [Abnormal weight gain]06-14-2024 EpisodicOther nutritional; endocrine; and metabolic disorders (1 source)Weight decreased; Translations: [Abnormal weight loss]05-31-2023 EpisodicOther screening for suspected conditions (not mental disorders or infectious disease) (4 sources)Encounter for screening for malignant neoplasm of prostate; Translations: [ENC SCREEN MALIG NEOPLASM PROSTATE]Onset: 03-11-2021 Resolved: 65-43-7603SffykawbBdbsc skin disorders (1 source)Actinic keratosis; Translations: [Actinic keratosis]10-70-8468Odhtjdlz Other upper respiratory disease (11 sources)Allergic rhinitis; Translations: [Allergic rhinitis, unspecified] 90-48-6785SrxekisAvaoz upper respiratory disease (4 sources)Allergic rhinitis, unspecified; Translations: [Allergic rhinitis, cause unspecified]Onset: 03-11-2021 Resolved: 73-99-1469FlzvjsvTpwymouu codes; unclassified (10 sources)Insomnia; Translations: [Insomnia, unspecified]EpisodicResidual codes; unclassified (1 source)Memory impairment; Translations: [Other amnesia]32-69-2575Vybyqnru Residual codes; unclassified (1 source)History of colonoscopy; Translations: [Other specified postprocedural states]12-57-2344KkqsnsckNzzdusb on above:Dr. Marquez 03/04/2015 repeat 10 years 2025 Past or Other Problems Problem ClassificationProblemDateDocumented DateEpisodic/ChronicImmunizations and screening for infectious disease (1 source)Contact with and (suspected) exposure to other viral communicable diseasesOnset: 02-12-2021 Resolved: 53-68-8971QeroxiqzFgbii circulatory disease (1 source)Other specified symptoms and signs involving the circulatory and respiratory systemsOnset: 02-13-2021 Resolved: 26-06-0058FazwvpwsCnjfx non-traumatic joint disorders (1 source)Pain in left hipOnset: 10-21-2021 Resolved: 14-99-7798JoyyfdfoOytbh upper respiratory disease (1 source)Nasal congestionOnset: 02-13-2021 Resolved: 92-03-4999HicdbkopHsurn upper respiratory infections (1 source)Acute sinusitis, unspecifiedOnset: 02-12-2021 Resolved: 90-02-2596SzdholtgMebonipfjoll (2 sources)Cough R05.9Onset: 02-13-2021 Resolved: 47-18-7752Xozpd infection (1 source)COVID-19 Results Test NameValueInterpretationReference RangeFacilityBasophils Auto (Bld) [#/Vol] on 01-92-9925Mpamyzkxv (Bld) [#/Vol]Automated basophil count0.0-0.1FMercy Health St. Vincent Medical CenterBasophils/100 WBC Auto (Bld)on 10-77-3419Osenumoxo/100 WBC (Bld)Automated basophil %0.2-2.0[facility] HospitalCholesterol in LDL Calc [Mass/Vol]on 73-86-7150Sdbjzsqoqix in LDL [Mass/Vol]Cholesterol in LDL [Mass/volume] in Serum or Plasma by calculationBerger HospitalComment on above:<100 mg/dl TKNWPWR406-639 mg/dl NEAR OR ABOVE QVFYADH936- 159 mg/dl BORDERLINE FCPC048-641 mg/dl HIGH>190 mg/dl VERY HIGHCholesterol in VLDL Calc [Mass/Vol]on 43-69-7181Kjaokhtlviv in VLDL [Mass/Vol]Cholesterol in VLDL [Mass/volume] in Serum or Plasma by calculationBerger HospitalEosinophils/100 WBC Auto (Bld)on 51-38-5967Mpfbxzddham/100 WBC (Bld) Automated eosinophil %0.9-7.0Ber[facility] HospitalErythrocyte distribution width Auto (RBC) [Ratio]on 08-55-2058Pfnijqwrjui distribution width (RBC) [Ratio]Erythrocyte distribution width [Ratio] by Automated count11.0-15.0 [facility] HospitalEstimated glomerular filtration rate (GFR) non- Americanon 03-76-8610OHF/1.73 sq M.predicted among non-blacks MDRD (S/P/Bld) [Vol rate/Area]Estimated glomerular filtration rate (GFR) non->=60 mL/min/1.73m 2FMercy Health St. Vincent Medical CenterGlobulin Calc (S) [Mass/Vol]on 97-74-0265Orkwzhof (S) [Mass/Vol]Serum globulin measurement by calculation (mass/volume)[facility] HospitalGlucose mean value [Mass/volume] in Blood Estimated from glycated hemoglobinon 66-54-0978Xzafzsz glucose Estimated from glycated hemoglobin (Bld) [Mass/Vol]Glucose mean value [Mass/volume] in Blood Estimated from glycated hemoglobinBerger HospitalHematocrit Auto (Bld) [Volume fraction]on 15-52-9438Kbudzzhheh (Bld) [Volume fraction]Hematocrit [Volume Fraction] of Blood by Automated count 42.0-54.0Ber[facility] HospitalHemoglobin A1c percentageon 06-10-2024 HbA1c (Bld) [Mass fraction]Hemoglobin A1c percentage4.5-6.2FMercy Health St. Vincent Medical CenterComment on above:ADA RECOMMENDED LIMIT 4.0 - 6.0ADA THERAPEUTIC TARGET < 7.0ACTION SUGGESTED> 7.0Hemoglobin [Mass/volume] in Bloodon 06-10-2024 Hemoglobin (Bld) [Mass/Vol]Hemoglobin [Mass/volume] in Blood14.0-18.0[facility] HospitalLaboratory - Chemistry and Chemistry - challengeon 21-65-5162Iqzdaxw [Mass/Vol]3.7 g/dL3.4-5.0[facility] HospitalALP [Catalytic activity/Vol]58 U/Q00-060WpvvbuwhrBerger HospitalALT [Catalytic activity/Vol]30 U/E84-70LsvklfekeBerger HospitalAST [Catalytic activity/Vol]22 U/I16-02OhthbmxrfBerger HospitalBilirubin [Mass/Vol]0.4 mg/dL0.2-1.0[facility] HospitalCalcium [Mass/Vol]9.1 mg/dL8.5-10.1FMercy Health St. Vincent Medical CenterChloride [Moles/Vol]106 mmol/L 98-107Ber[facility] HospitalCholesterol [Mass/Vol]172 mg/dL<=200 [facility] HospitalCholesterol in HDL [Mass/Vol]87 mg/gOAswa52-41 [facility] HospitalComment on above:> or =60 mg/dl - LOW CARDIOVASCULAR RISK<40 mg/dl - HIGH CARDIOVASCULAR RISKCO2 [Moles/Vol]29.5 mmol/L21.0-32.0[facility] HospitalCreatinine [Mass/Vol]0.96 mg/dL 0.70-1.30Ber[facility] HospitalGFR/1.73 sq M.predicted MDRD (S/P/Bld) [Vol rate/Area]mL/min/{1.73_m2}>=60 mL/min/1.73m 2FMercy Health St. Vincent Medical CenterGlucose [Mass/Vol]105 mg/yX43-366WpcbzpznmBerger Hospital Potassium [Moles/Vol]4.4 mmol/L3.5-5.1FMercy Health St. Vincent Medical CenterProtein [Mass/Vol]6.7 g/dL6.4-8.2FMercy Health St. Rita's Medical Centerodium [Moles/Vol]143 mmol/A086-164XttxxdvppBerger HospitalTriglyceride [Mass/Vol]53 mg/dL <=150Berger HospitalTSH Qn2.195 m[IU]/L0.358-3.740Ber[facility] HospitalUrea nitrogen [Mass/Vol]18.0 mg/dL7.0-18.0Ber[facility] HospitalUrea nitrogen/Creatinine [Mass ratio]18.8 mg/mgBerger HospitalLaboratory - Hematology and Cell countson 06-10-2024 Immature granulocytes/100 WBC (Bld)0.2 %0.0-0.5FMercy Health St. Vincent Medical Center Leukocytes [#/volume] corrected for nucleated erythrocytes in Blood by Automated counon 82-38-8972CXT corrected for nucl RBC Auto (Bld) [#/Vol]Leukocytes [#/volume] corrected for nucleated erythrocytes in Blood by Automated coun 4.0-11.0[facility] HospitalLymphocytes Auto (Bld) [#/Vol]on 42-39-4556Djmmppiglvt (Bld) [#/Vol]Lymphocytes [#/volume] in Blood by Automated count1.2-3.8Ber[facility] HospitalLymphocytes/100 WBC Auto (Bld)on 40-38-4962Lthnbwgojwx/100 WBC (Bld)Lymphocytes/100 leukocytes in Blood by Automated count20.5-60.0[facility] HospitalH Auto (RBC) [Entitic mass]on 66-99-6942UDC (RBC) [Entitic mass]MCH [Entitic mass] by Automated count 25.9-34.0[facility] HospitalMCHC Auto (RBC) [Mass/Vol]on 45-52-2004BQEQ (RBC) [Mass/Vol]MCHC [Mass/volume] by Automated count29.9-35.2 [facility] HospitalMCV Auto (RBC) [Entitic vol]on 73-12-2124QCF (RBC) [Entitic vol]MCV [Entitic volume] by Automated count80.0-94.0[facility] HospitalMonocytes Auto (Bld) [#/Vol]on 29-23-9795Oydwkmifa (Bld) [#/Vol]Automated blood monocyte count0.3-0.8[facility] Monocytes/100 WBC Auto (Bld)on 60-38-3278Fhooxsbau/100 WBC (Bld)Automated monocyte %High1.7-12.0[facility] HospitalNeutrophils Auto (Bld) [#/Vol]on 80-89-9849Qefaqlfmixn (Bld) [#/Vol]Neutrophils [#/volume] in Blood by Automated count1.4-6.5FMercy Health St. Vincent Medical CenterNeutrophils/100 WBC Auto (Bld)on 49-98-2884Zrvqfjbbnsx/100 WBC (Bld)Automated neutrophil %43.0-75.0 [facility] HospitalNo Panel Informationon 01-99-8038Avbhbalxzdp # (Auto)0.3 10 3/uL0.0-0.7FMercy Health St. Vincent Medical CenterImmature Granulocyte # (Auto)0.01 10 3/uL0.00-0.03[facility] HospitalPlatelet mean volume Auto (Bld) [Entitic vol]on 18-89-1927Qbbscgto mean volume (Bld) [Entitic vol] Platelet mean volume [Entitic volume] in Blood by Automated countLow9.5-13.5 [facility] HospitalPlatelets Auto (Bld) [#/Vol]on 06-10-2024 Platelets (Bld) [#/Vol]Platelets [#/volume] in Blood by Automated vzvys954-983 [facility] HospitalRBC Auto (Bld) [#/Vol]on 95-94-1074BMI (Bld) [#/Vol]Erythrocytes [#/volume] in Blood by Automated count4.70-6.10[facility] Medical Centererum or plasma albumin/globulin mass ratioon 06-10-2024 Albumin/Globulin [Mass ratio]Serum or plasma albumin/globulin mass ratio [facility] Medical Centererum or plasma anion gap determinationon 08-75-0782Oqzqw gap [Moles/Vol]Serum or plasma anion gap determinationSumma Health Wadsworth - Rittman Medical Centererum or plasma total cholesterol/high density lipoprotein (HDL) cholesterol mass maya 62-98-2339Ztpdzmweqcm.total/Cholesterol in HDL [Mass ratio]Serum or plasma total cholesterol/high density lipoprotein (HDL) cholesterol mass [facility] ClinicComment on above:3.3 - 4.4 LOW RISK4.4 - 7.1 AVERAGE RISK7.1 - 11.0 MODERATE RISK>11.0 HIGH RISKCBC AUTO DIFFon 10-10-5669CHII #0.1 103/ulNormal0.0-0.1The St. [facility]S Medical CenterComment on above:Performed By: #### CBC #### [facility] [address] [place] [address] Dr. Puja Inmansophils/100 WBC (Bld)1.1 %Normal0.2-2.0The [facility] Comment on above:Performed By: #### CBC #### [facility] [address] [place] [address] Dr. Puja Jones #0.3 103/ulNormal0.0-0.7The St. [facility]S Medical CenterComment on above: Performed By: #### CBC #### [facility] [address] [place] [address] Dr. Puja Aragonosinophils/100 WBC (Bld)6.6 %Normal0.9-7.0The [facility] Comment on above:Performed By: #### CBC #### [facility] [address] [place] [address] Dr. Puja Aragonrythrocyte distribution width (RBC) [Ratio]12.3 %Lrgolx18.0-15.[address] [facility] Medical CenterComment on above:Performed By: #### CBC #### [facility] [address] [place] [address] Dr. Puja LeonardHematocrit (Bld) [Volume fraction]46.1 %Yuxcpc99.0-54.0The St. [facility] Medical CenterComment on above:Performed By: #### CBC #### [facility] [address] [place] [address] Dr. Puja LeonardHemoglobin (Bld) [Mass/Vol]15.8 g/nPLiojoj42.0-18.0The [facility] Medical CenterComment on above:Performed By: #### CBC #### [facility] [address] [place] [address] Dr. Puja Iraheta #0.01 10e3/ulNormal0.00-0.03The St[facility]S Medical CenterComment on above:Performed By: #### CBC #### [facility] [address] [place] [address] Dr. Puaj Iraheta %0.2 %Normal0.0-0.5The St[facility] Medical CenterComment on above: Performed By: #### CBC #### [facility] [address] [place] [address] Dr. Puja Abraham #1.5 103/ulNormal1.2-3.8The St. [facility] Medical CenterComment on above:Performed By: #### CBC #### [facility] [address] [place] [address] Dr. Puja Luhocytes/100 WBC (Bld)32.4 %Qltpmq53.5-60.0The St[facility] Medical CenterComment on above:Performed By: #### CBC #### [facility] [address] [place] [address] Dr. Puja Mota DIFF REQNONormalThe St. Mary'S Medical CenterComment on above: Performed By: #### CBC #### [facility] [address] [place] [address] Dr. Puja Meredith (RBC) [Entitic mass]29.[address] wdLjdouy95.9-34.0The [facility] Medical CenterComment on above:Performed By: #### CBC #### [facility] [address] [place] [address] Dr. Puja Pan (RBC) [Mass/Vol]34.3 g/jNEkbtji37.9-35.2The St[facility] Medical CenterComment on above:Performed By: #### CBC #### [facility] [address] [place] [address] Dr. Puja Pan (RBC) [Entitic vol]87.3 zVAnyndv71.0-94.0The St[facility] Medical CenterComment on above:Performed By: #### CBC #### [facility] [address] [place] [address] Dr. Puja Rodriguez #0.5 103/ulNormal0.3-0.8The St[facility] Medical CenterComment on above:Performed By: #### CBC #### [facility] [address] [place] [address] Dr. Puja Bensonocytes/100 WBC (Bld)10.2 %Normal1.7-12.0The [facility] Comment on above:Performed By: #### CBC #### [facility] [address] [place] [address] Dr. Puja VelezUT #2.3 103/ulNormal1.4-6.5The St[facility] Medical CenterComment on above:Performed By: #### CBC #### [facility] [address] [place] [address] Dr. Puja Velezutrophils/100 WBC (Bld)49.5 %Otafse44.0-75.0The [facility] Medical CenterComment on above:Performed By: #### CBC #### [facility] [address] [place] [address] Dr. Puja LeonardPlatelet mean volume (Bld) [Entitic vol]8.6 fLCritically low 9.5-13.5The St. [facility] Medical CenterComment on above:Performed By: #### CBC #### [facility] [address] [place] [address] Dr. Puja LeonardPLT215 103/xdLqjnms481-382Nsf St. [facility]S Medical CenterComment on above: Performed By: #### CBC #### [facility] [address] [place] [address] Dr. Puja LeonardRBC5.28 106/ulNormal4.70-6.10The St. [facility] Medical CenterComment on above:Performed By: #### CBC #### [facility] [address] [place] [address] Dr. Puja LeonardWBC4.7 103/ulNormal4.0-11.0The St[facility] Medical CenterComment on above: Performed By: #### CBC #### [facility] [address] [place] [address] Dr. Puja LeonardGLYCOHEMOGLOBIN A1Con 10-98-2859PJW RECOMMENDATIONSEE BELOWNormal St[facility] CampusComascension [facility] on above:Result Comment: ADA RECOMMENDED LIMIT 4.0 - 6.0 ADA THERAPEUTIC TARGET < 7.0 ACTION SUGGESTED > 7.0Performed By: #### A1C #### [facility] [address] [place] [address] Dr. Puja LeonardGlucose [Mass/Vol]114 mg/dLNormalThe St. Mary'S Medical CenterComment on above:Performed By: #### A1C #### [facility] [address] [address] [address] Puja LeonardHbA1c (Bld) [Mass fraction]5.6 %Normal4.5-6.2The St. [facility]S Medical CenterComment on above:Performed By: #### A1C #### [facility] [address] [place] [address] Dr. Puja SerranoID PROFILEon 76-58-7447YNOX-HDL RATIO NORMSEE BELOWSalem Regional Medical CenterComment on above:Result Comment: 3.3 - 4.4 LOW RISK 4.4 - 7.1 AVERAGE RISK 7.1 - 11.0 MODERATE RISK >11.0 HIGH RISKPerformed By: #### TSH, LIPID, CMP #### [facility] [address] [place] [address] Dr. Puja LeonardCholesterol [Mass/Vol]186 mg/dLNormal<=200The [facility] Comment on above:Performed By: #### TSH, LIPID, CMP #### [facility] [address] [place] [address] Dr. Puja Boyleesterol in HDL [Mass/Vol]79 mg/dLCritically tgaa07-22Oqm [facility] CenterCom[facility] on above:Performed By: #### TSH, LIPID, CMP #### [facility] [address] [place] [address] Dr. Puja LeonardCholesterol in LDL [Mass/Vol]94.8 mg/dLSalem Regional Medical CenterComment on above:Performed By: #### TSH, LIPID, CMP #### [facility] [address] [place] [address] Dr. Puja Boyleesterelida.total/Cholesterol in HDL [Mass ratio]2.4 {ratio} NormalThe St. [facility]'S Medical CenterComment on above:Performed By: #### TSH, LIPID, CMP #### [facility] [address] [place] [address] Dr. Puja LeonardHDL NORMAL> or = 60 mg/dl - LOW CARDIOVASCULAR RISK <40 mg/dl - HIGH CARDIOVASCULAR RISKSalem Regional Medical CenterComment on above:Performed By: #### TSH, LIPID, CMP #### [facility] [address] [address] [address] Puja Tovar CALC NORMALSEE BELOWSalem Regional Medical CenterComment on above:Result Comment: <100 mg/dl OPTIMAL 100 - 129 mg/dl NEAR OR ABOVE OPTIMAL 130 - 159 mg/dl BORDERLINE HIGH 160 - 189 mg/dl HIGH >190 mg/dl VERY HIGH Performed By: #### TSH, LIPID, CMP #### [facility] [address] [address] [address] Puja LeonardTriglyceride [Mass/Vol]61 mg/dLNormal<=150The [facility] Comment on above:Performed By: #### TSH, LIPID, CMP #### [facility] [address] [place] [address] Dr. Puja LeonardVLDL CALC12.2 mg/dLNoTrinity Health System West CampusComment on above: Performed By: #### TSH, LIPID, CMP #### [facility] [address] [place] [address] Dr. Puja LeonardPROF 14(COMP METB)on 12-98-7474Tmbvlqt [Mass/Vol]3.8 g/dLNormal 3.4-5.0The [facility] on above:Performed By: #### TSH, LIPID, CMP #### [facility] [address] [place] [address] Dr. Puja LeonardAlbumin/Globulin [Mass ratio]1.2 {ratio}NormalThe St. [facility]S Medical CenterComment on above:Performed By: #### TSH, LIPID, CMP #### [facility] [address] [place] [address] Dr. Puja HannahP [Catalytic activity/Vol]62 U/IXsulce24-133Qdm [facility] CenterComasc[facility] on above:Performed By: #### TSH, LIPID, CMP #### [facility] [address] [place] [address] Dr. Puja Gill [Catalytic activity/Vol]45 U/MVucufo15-57Lsx St[facility] Medical CenterComment on above:Performed By: #### TSH, LIPID, CMP #### [facility] [address] [address] [address] Puja Harrison gap [Moles/Vol]12.4 mmol/LNormalSt. [facility] Comment on above:Performed By: #### TSH, LIPID, CMP #### [facility] [address] [address] [address] Puja LeonardAST [Catalytic activity/Vol]24 U/PGbjxtv94-20Npc St[facility] Medical CenterComment on above:Performed By: #### TSH, LIPID, CMP #### [facility] [address] [address] [address] Puja LeonardBilirubin [Mass/Vol]0.4 mg/dLNormal0.2-1.0[facility] Comment on above:Performed By: #### TSH, LIPID, CMP #### [facility] [address] [address] [address] Puja LeonardCalcium [Mass/Vol]9.1 mg/dLNormal8.5-10.1[facility] Comment on above:Performed By: #### TSH, LIPID, CMP #### [facility] [address] [address] [address] Puja LeonardChloride [Moles/Vol]105 mmol/RSdrlxu97-337Xlw [facility] Comment on above:Performed By: #### TSH, LIPID, CMP #### [facility] [address] [address] [address] Puja LeonardCO2 [Moles/Vol]30.2 mmol/XIztdes14.0-32.0[facility] Comment on above:Performed By: #### TSH, LIPID, CMP #### [facility] [address] [address] [address] Puja LeonardCreatinine [Mass/Vol]0.86 mg/dLNormal0.70-1.30The St[facility] CenterComment on above:Performed By: #### TSH, LIPID, CMP #### [facility] [address] [address] [address] Luo ChangEGFR-AF FRENCH>60Normal>=60The [facility] CenterComment on above:Performed By: #### TSH, LIPID, CMP #### [facility] [address] [place] [address] Dr. Puja Fajardo-NON AF FRENCH>60Normal>=60The [facility] CenterComment on above:Performed By: #### TSH, LIPID, CMP #### [facility] [address] [place] [address] Dr. Puja LeonardGlobulin (S) [Mass/Vol]3.1 g/dLNormalThe St. [facility]S Medical CenterComment on above:Performed By: #### TSH, LIPID, CMP #### [facility] [address] [place] [address] Dr. Puaj LeonardGlucose [Mass/Vol]109 mg/dLCritically jqmp77-476Ydh St[facility] CenterComment on above:Performed By: #### TSH, LIPID, CMP #### [facility] [address] [place] [address] Dr. Puja LeonardPotassium [Moles/Vol]4.6 mmol/LNormal3.5-5.1The [facility] Comment on above:Performed By: #### TSH, LIPID, CMP #### [facility] [address] [place] [address] Dr. Puja LeonardProtein [Mass/Vol]6.9 g/dLNormal6.4-8.2The [facility] Comment on above:Performed By: #### TSH, LIPID, CMP #### [facility] [address] [place] [address] Dr. Puja LeonardSodium [Moles/Vol]143 mmol/MBcvvnd620-090LgzSt. [facility] Comment on above:Performed By: #### TSH, LIPID, CMP #### [facility] [address] [place] [address] Dr. Puja LeonardUrea nitrogen [Mass/Vol]13.0 mg/dLNormal7.0-18.0The [facility] CenterComment on above:Performed By: #### TSH, LIPID, CMP #### [facility] [address] [place] [address] Dr. Puja Cheung nitrogen/Creatinine [Mass ratio]15.1 mg/mgNormalThe St. [facility]S Medical CenterComment on above:Performed By: #### TSH, LIPID, CMP #### [facility] [address] [place] [address] Dr. Puja Chappell 28-82-6288OBR7.403 uIU/mLNormal0.358-3.740The St[facility] Medical CenterComment on above:Performed By: #### TSH, LIPID, CMP #### [facility] [address] [place] [address] Dr. Puja ThomsonC AUTO DIFFon [id number] #0.0 103/ulNormal0.0-0.1The St. [facility] Medical CenterComment on above:Performed By: #### CBC #### [facility] [address] [place] [address] Dr. Puja LeonardBasophils/100 WBC (Bld)0.7 %Normal0.2-2.0[facility] Comment on above:Performed By: #### CBC #### [facility] [address] [place] [address] Dr. Puja Jones #0.3 103/ulNormal0.0-0.7The St. [facility] Medical CenterComment on above: Performed By: #### CBC #### [facility] [address] [place] [address] Dr. Puja Aragonosinophils/100 WBC (Bld)5.9 %Normal0.9-7.0[facility] Comment on above:Performed By: #### CBC #### [facility] [address] [place] [address] Dr. Puja Aragonrythrocyte distribution width (RBC) [Ratio]12.2 %Arqfmi57.0-15.[address] [facility] CenterComment on above:Performed By: #### CBC #### [facility] [address] [place] [address] Dr. Puja LeonardHematocrit (Bld) [Volume fraction]46.0 %Xmdqmk60.0-54.0The [facility] HospitalComment on above:Performed By: #### CBC #### [facility] [address] [address] [address] Puja LeonardHemoglobin (Bld) [Mass/Vol]15.8 g/wOXoygks92.0-18.0The [facility] CenterComment on above:Performed By: #### CBC #### [facility] [address] [place] [address] Dr. Puja Iraheta #0.01 10e3/ulNormal0.00-0.03The [facility] CenterComasc[facility] on above:Performed By: #### CBC #### [facility] [address] [place] [address] Dr. Puja Iraheta %0.2 %Normal0.0-0.5The [facility] CenterComasc[facility] on above: Performed By: #### CBC #### [facility] [address] [place] [address] Dr. Puja Abraham #1.7 103/ulNormal1.2-3.8The St. [facility] CenterComment on above:Performed By: #### CBC #### [facility] [address] [place] [address] Dr. Puja Luhocytes/100 WBC (Bld)29.1 %Lgtmjj23.5-60.0The [facility] on above:Performed By: #### CBC #### [facility] [address] [place] [address] Dr. Puja BoyerUAL DIFF REQNONormalThe St. [facility]S Medical CenterComment on above: Performed By: #### CBC #### [facility] [address] [place] [address] Dr. Puja Pan (RBC) [Entitic mass]30.5 liKlopxi31.9-34.0The St[facility] CenterComment on above:Performed By: #### CBC #### [facility] [address] [place] [address] Dr. Puja Pan (RBC) [Mass/Vol]34.3 g/dCFomcvn53.9-35.2The [facility] CenterComment on above:Performed By: #### CBC #### [facility] [address] [place] [address] Dr. Puja PanV (RBC) [Entitic vol]88.[address] hZGugibp75.0-94.0The [facility] CenterComment on above:Performed By: #### CBC #### [facility] [address] [place] [address] Dr. Puja Rodriguez #0.7 103/ulNormal0.3-0.8The [facility] CenterComment on above:Performed By: #### CBC #### [facility] [address] [place] [address] Dr. Puja Bensonocytes/100 WBC (Bld)11.5 %Normal1.7-12.0The [facility] Comment on above:Performed By: #### CBC #### [facility] [address] [place] [address] Dr. Puja Han #3.0 103/ulNormal1.4-6.5The [facility] CenterComment on above:Performed By: #### CBC #### [facility] [address] [place] [address] Dr. Puja Velezutrophils/100 WBC (Bld)52.6 %Utqdhc54.0-75.0The [facility] CenterComment on above:Performed By: #### CBC #### [facility] [address] [place] [address] Dr. Puja Farias mean volume (Bld) [Entitic vol]8.8 fLCritically low 9.5-13.5The St. [facility] CenterComment on above:Performed By: #### CBC #### [facility] [address] [place] [address] Dr. Puja PerazaT235 103/onIqsywt806-115Lzu St[facility] CenterComment on above: Performed By: #### CBC #### [facility] [address] [place] [address] Dr. Puja LeonardRBC5.18 106/ulNormal4.70-6.10The [facility] on above:Performed By: #### CBC #### [facility] [address] [address] [address] Puja LeonardWBC5.7 103/ulNormal4.0-11.0The [facility] on above: Performed By: #### CBC #### [facility] [address] [place] [address] Dr. Puja LeonardCULTURE URINEon 92-70-7301TPAEVJA URINECulture Observations: NO GROWTH.NormalMercy Health [facility] on above:Performed By: #### URCX #### [facility] [address] [place] [address] Dr. Puja LeonardGLYCOHEMOGLOBIN A1Con [id number] RECOMMENDATIONSEE [facility] HospitalCom[facility] on above:Result Comment: ADA RECOMMENDED LIMIT 4.0 - 6.0 ADA THERAPEUTIC TARGET < 7.0 ACTION SUGGESTED > 7.0Performed By: #### A1C #### [facility] [address] [place] [address] Dr. Puja LeonardGlucose [Mass/Vol]111 mg/dLCritically vooj81-648Jkj [facility] on above:Performed By: #### A1C #### [facility] [address] [place] [address] Dr. Puja LeonardPerformed By: #### TSH, LIPID, CMP #### [facility] [address] [place] [address] Dr. Puja LeonardHbA1c (Bld) [Mass fraction]5.5 %Normal4.5-6.2The [facility] on above:Performed By: #### A1C #### [facility] [address] [place] [address] Dr. Puja LeonardLIPID PROFILEon 21-64-5385LUQM-HDL RATIO NORMSEE [facility] on above:Result Comment: 3.3 - 4.4 LOW RISK 4.4 - 7.1 AVERAGE RISK 7.1 - 11.0 MODERATE RISK >11.0 HIGH RISKPerformed By: #### TSH, LIPID, CMP #### [facility] [address] [address] [address] Puja LeonardCholesterol [Mass/Vol]176 mg/dLNormal<=200[facility] Comment on above:Performed By: #### TSH, LIPID, CMP #### [facility] [address] [place] [address] Dr. Puja LeonardCholesterol in HDL [Mass/Vol]81 mg/dLCritically pbdo49-18Vqd St[facility] CenterComment on above:Performed By: #### TSH, LIPID, CMP #### [facility] [address] [place] [address] Dr. Puja LeonardCholesterol in LDL [Mass/Vol]75.8 mg/dLSalem Regional Medical CenterComment on above:Performed By: #### TSH, LIPID, CMP #### [facility] [address] [place] [address] Dr. Puja Boyleesterelida.total/Cholesterol in HDL [Mass ratio]2.2 {ratio} NormalSt. Mary'S Medical Center, Iront[facility] CampusComment on above:Performed By: #### TSH, LIPID, CMP #### [facility] [address] [place] [address] Dr. Puja Jones NORMAL> or = 60 mg/dl - LOW CARDIOVASCULAR RISK <40 mg/dl - HIGH CARDIOVASCULAR RISKSalem Regional Medical CenterComment on above:Performed By: #### TSH, LIPID, CMP #### [facility] [address] [place] [address] Dr. Puja LeonardLDL CALC NORMALSEE BELOWSalem Regional Medical CenterComment on above:Result Comment: <100 mg/dl OPTIMAL 100 - 129 mg/dl NEAR OR ABOVE OPTIMAL 130 - 159 mg/dl BORDERLINE HIGH 160 - 189 mg/dl HIGH >190 mg/dl VERY HIGH Performed By: #### TSH, LIPID, CMP #### [facility] [address] [place] [address] Dr. Puja LeonardTriglyceride [Mass/Vol]96 mg/dLNormal<=150[facility] Comment on above:Performed By: #### TSH, LIPID, CMP #### [facility] [address] [address] [address] Puja DillardLDL CALC19.2 mg/dLNormalThe St. [facility]S Medical CenterComment on above: Performed By: #### TSH, LIPID, CMP #### [facility] [address] [address] [address] Puja LeonardPROF 14(COMP METB)on 25-36-3910Eofmbvc [Mass/Vol]4.0 g/dLNormal 3.4-5.0The [facility] Medical CenterComment on above:Performed By: #### TSH, LIPID, CMP #### [facility] [address] [place] [address] Dr. Puja LeonardAlbumin/Globulin [Mass ratio]1.2 {ratio}NormalThe St. [facility]S Medical CenterComment on above:Performed By: #### TSH, LIPID, CMP #### [facility] [address] [place] [address] Dr. Puja Salinas [Catalytic activity/Vol]65 U/CTukhkn90-789Hbj St[facility] CenterComment on above:Performed By: #### TSH, LIPID, CMP #### [facility] [address] [place] [address] Dr. Puja Gill [Catalytic activity/Vol]32 U/WNtjuaz96-55Cdw [facility] Healthment on above:Performed By: #### TSH, LIPID, CMP #### [facility] [address] [place] [address] Dr. Puja Sepulveda gap [Moles/Vol]10.0 mmol/LNormalThe [facility] on above:Performed By: #### TSH, LIPID, CMP #### [facility] [address] [place] [address] Dr. Puja Higgins [Catalytic activity/Vol]20 U/FXpyrzd96-82Ogi [facility] Healthment on above:Performed By: #### TSH, LIPID, CMP #### [facility] [address] [place] [address] Dr. Puja LeonardBilirubin [Mass/Vol]0.7 mg/dLNormal0.2-1.0The [facility] Comment on above:Performed By: #### TSH, LIPID, CMP #### [facility] [address] [place] [address] Dr. Puja LeonardCalcium [Mass/Vol]8.9 mg/dLNormal8.5-10.1The [facility] Comment on above:Performed By: #### TSH, LIPID, CMP #### [facility] [address] [place] [address] Dr. Puja LeonardChloride [Moles/Vol]102 mmol/RKsrimv84-221Pks [facility] Comment on above:Performed By: #### TSH, LIPID, CMP #### [facility] [address] [place] [address] Dr. Puja LeonardCO2 [Moles/Vol]30.9 mmol/ZNdhlgr51.0-32.0[facility] Comment on above:Performed By: #### TSH, LIPID, CMP #### [facility] [address] [place] [address] Dr. Puja LeonardCreatinine [Mass/Vol]0.94 mg/dLNormal0.70-1.30The [facility] CenterComment on above:Performed By: #### TSH, LIPID, CMP #### [facility] [address] [place] [address] Dr. Puja AragonGFR-AF FRENCH>60Normal>=60The [facility] CenterComment on above:Performed By: #### TSH, LIPID, CMP #### [facility] [address] [place] [address] Dr. Puja AragonGFR-NON AF FRENCH>60Normal>=60The [facility] CenterComment on above:Performed By: #### TSH, LIPID, CMP #### [facility] [address] [place] [address] Dr. Puja LeonardGlobulin (S) [Mass/Vol]3.3 g/dLNormalThe St. [facility] CenterComment on above:Performed By: #### TSH, LIPID, CMP #### [facility] [address] [place] [address] Dr. Puja LeonardPotassium [Moles/Vol]3.9 mmol/LNormal3.5-5.1The [facility] Comment on above:Performed By: #### TSH, LIPID, CMP #### [facility] [address] [address] [address] Puja LeonardProtein [Mass/Vol]7.3 g/dLNormal6.4-8.2The [facility] Comment on above:Performed By: #### TSH, LIPID, CMP #### [facility] [address] [address] [address] Puja LeonardSodium [Moles/Vol]139 mmol/KIckazc050-723Jof [facility] Comment on above:Performed By: #### TSH, LIPID, CMP #### [facility] [address] [address] [address] Puja LeonardUrea nitrogen [Mass/Vol]14.0 mg/dLNormal7.0-18.0The [facility] CenterComment on above:Performed By: #### TSH, LIPID, CMP #### [facility] [address] [address] [address] Puja Cheung nitrogen/Creatinine [Mass ratio]14.9 mg/mgNormalThe St. [facility]S Medical CenterComment on above:Performed By: #### TSH, LIPID, CMP #### [facility] [address] [address] [address] Puja Johnson RANDOMon 09-75-9626Pxrbqautq Ql (U)NegativeNormalNEGATIVEThe St. [facility]S Medical CenterComment on above:Performed By: #### UA #### [facility] [address] [place] [address] Dr. Puja Philliparity (U)CLEARNormalCLEARThe St. [facility]S Medical CenterComment on above: Performed By: #### UA #### [facility] [address] [place] [address] Dr. Puja Bass (U)LT. YELLOWNormalYELLOWThe St. [facility]S Medical CenterComment on above:Performed By: #### UA #### [facility] [address] [address] [address] Puja LeonardGlucose Ql (U)NegativeNormalNEGATIVESt. Mary'[facility], [facility] CampusComment on above:Performed By: #### UA #### [facility] [address] [address] [address] Puja LeonardHemoglobin Ql (U)NegativeNormalNEGGerman Hospital Comment on above:Performed By: #### UA #### [facility] [address] [address] [address] Puja LeonardKetones Ql (U)NegativeNormalNEGATIVESt. Mary'[facility] CampusComment on above:Performed By: #### UA #### [facility] [address] [place] [address] Dr. Puja LeonardLEUKOCYTESNegativeNormalNEGATIVESt. Mary'[facility] CampusComment on above:Performed By: #### UA #### [facility] [address] [place] [address] Dr. Puja LeonardNitrite Ql (U)NegativeNormalNEGATIVESt. Mary'[facility] CampusComment on above:Performed By: #### UA #### [facility] [address] [address] [address] Puja LeonardpH (U)7.5 [pH]Normal5-9The [facility] CenterComascension [facility] on above: Performed By: #### UA #### [facility] [address] [place] [address] Dr. Puja LeonardSPEC GRAVITY<=1.330Acqpojfv0.005-<=1.025The [facility] Comment on above:Performed By: #### UA #### [facility] [address] [place] [address] Dr. Puja LeonardUA PROTEINNegativeNormalNEGATIVE/ TRACEThe St[facility] Comment on above:Performed By: #### UA #### [facility] [address] [place] [address] Dr. Puja LeonardUrobilinogen Qn (U)0.2 {Sandy'U}/dLNormal0.2 - 1.0The [facility] CenterComment on above:Performed By: #### UA #### [facility] [address] [address] [address] Puja Leonard Vital Signs Date TimeVital SignValuePerforming [id number] 15:36-0400Body .99 [facility]04[facility]20[facility] 15:36-0400Body mass index (BMI) [Ratio]26.6 kg/a5KukrsgkmhBerger Hospital04-23-2025 15:36-0400Body fgdgsyykpbe29.7 [degF][facility]04-23-2025 15:36-0400Body ozdafz02.73 kgBerger Hospital04-23-2025 15:36-0400Diastolic blood houzuvwn31 mm[Hg][facility] 06-14-2024 15:36-0400Heart rate69 /minBerger Hospital 06-14-2024 15:36-8470QtW6% (BldA) [Mass fraction]97 %[facility]04-23-2025 15:36-0400Systolic blood qgmibhxl778 mm[Hg][facility]10-02-2023 16:40-0400Body tdowvs530.99 cmDeon Funez Other [employer] Other 10-02-2023 16:40-0400Body mass index (BMI) [Ratio] 28.54 kg/q5EmawoDeon Funez Other [employer] Other 10-02-2023 16:40-0400Body lixmgeywhcv68.9 [degF]Deon Funez Other [employer] Other 10-02-2023 16:40-0400Body yibivr33.41 kgDacamilo Funez Other [employer] Other 10-02-2023 16:40-0400Diastolic blood fivbzwgy03 mm[Hg] Deon Funez Other [employer] Other 10-02-2023 16:40-0400Respiratory rate18 /Lisset Funez Other [employer] Other 10-02-2023 16:40-6555UoS7% (BldA) [Mass fraction]97 % Deon Funez Other [employer] Other 10-02-2023 16:40-0400Systolic blood taikhlao779 mm[Hg] Deon Funez Other [employer] Other [id number] 17:40-0400Body oxijzg948.99 cmDacamilo Funez Other [employer] Other [id number] 17:40-0400Body mass index (BMI) [Ratio] 28.54 kg/x3LguvdDeon Funez Other [employer] Other 03-20-2023 17:40-0400Body souslilqxpr23 [degF]Deon Funez Other [employer] Other 03-20-2023 17:40-0400Body zgxoqd34.41 kgDacamilo Funez Other [employer] Other [id number] 17:40-0400Diastolic blood qteznaaj26 mm[Hg] Deon Funez Other [employer] Other 03-20-2023 17:40-0400Respiratory rate18 /Lisset Funez Other [employer] Other 03-20-2023 17:40-0668YoL6% (BldA) [Mass fraction]98 % Deon Funez Other [employer] Other 03-20-2023 17:40-0400Systolic blood jromnuiu546 mm[Hg] Deon Funez Other [employer] Other 08-30-2022 11:30-0400Body xmpcke316.99 cmDacamilo Funez Other [employer] Other 08-30-2022 11:30-0400Body mass index (BMI) [Ratio] 28.54 kg/t1Danspcamilo Funez Other [employer] Other 08-30-2022 11:30-0400Body tknpkgafbnd77.7 [degF]Deon Funez Other [employer] Other 08-30-2022 11:30-0400Body .41 kgDacamilo Funez Other [employer] Other 08-30-2022 11:30-0400Diastolic blood mm[Hg] Deon Funez Other [employer] Other 08-30-2022 11:30-0400Respiratory rate18 /minDrobin Funez Other [employer] Other 08-30-2022 11:30-3180YmG1% (BldA) [Mass fraction]98 % Deon Funez Other [employer] Other 08-30-2022 11:30-0400Systolic blood axndqtay664 mm[Hg] Deon Funez Other [employer] Other 01-18-2022 11:30-0500Body zjlyem504.26 cmDacamilo Funez Other [employer]Fand[employer] Other 01-18-2022 11:30-0500Body mass index (BMI) [Ratio] 28.35 kg/d5YvcggDeon Funez Other [employer] Other 01-18-2022 11:30-0500Body qjugenfqwex59.1 [degF]Deon Funez Other [employer] Other 01-18-2022 11:30-0500Body wnefjz11.09 kgDacamilo Funez Other [employer] Other 01-18-2022 11:30-0500Diastolic blood donbqcww27 mm[Hg] Deon Funez Other [employer] Other 01-18-2022 11:30-0500Respiratory rate18 /minDrobin Funez Other [employer] Other 01-18-2022 11:30-3234YhH1% (BldA) [Mass fraction]97 % Deon Funez Other [employer] Other 01-18-2022 11:30-0500Systolic blood jvqiukmz174 mm[Hg] Deon Funez Other [employer] Other 12-22-2021 16:30-0500Body oymiev808.26 Lyndaameljean marie Vela Other [employer] Other 12-22-2021 16:30-0500Body mass index (BMI) [Ratio] 28.06 kg/t9ApwspeAdina Vela Other [employer] Other 12-22-2021 16:30-0500Body rwomikibbfm777 [degF]Adina Vela Other [employer] Other 12-22-2021 16:30-0500Body .18 kgAdina Vela Other [employer] Other 12-22-2021 16:30-0500Respiratory rate18 /minParaul Vela Other [employer] Other 12-22-2021 16:30-9089RiZ0% (BldA) [Mass fraction]98 % Adina Vela Other [employer] Other Encounters Encounter DateEncounter TypeCare ProviderFacilityStart: 07-26-2024 End: 64-49-5159yoqciadphjJWCCGZI S WRIGHTNot AvailableStart: 06-14-2024 End: 80-23-0573iwyzjfccnfBngbaulkjTrinity Health System [facility] Campus Work Phone: Start: 06-14-2024 End: 60-32-1302Fdblfbu encounter procedureCritical Access Hospital [facility] Work Phone: Start: 92-14-1743Con-patient / Non-visitCritical Access Hospital Phys[facility] Work Phone: Start: 04-13-2024 End: 95-40-5497wbalhyxbviXMSSI NORTHEIMNot AvailableStart: 03-08-2024 End: 48-71-0209kqmtikfjuqTLJGETV S WRIGHTNot AvailableStart: 92-98-9592Qxfcetp encounter statusSumma Health [facility] - [facility] Medical Centertart: 11-23-2022 End: 41-29-6294hnuvtyfdbkAhlmu Girvin Other noFandium Other Start: 05-86-3156Xhkhhubpl for general adult medical examination without abnormal findingsDavid ArminKade Family [facility] [place] Start: 15-56-6580Gkfinoqk preventive med est patient 40-64yrsDavid [facility] BellevueStart: 05-11-2022 End: 65-99-1946syrzfktgivSgmpj Girvin Other noFandium Other Start: 21-78-3742Mkdasl outpatient visit 15 minutes Deon [facility] [place]vueStart: 05-02-2022 End: 99-28-7106otmejwziysCU DEON FUNEZFacility:O1Hbpwn: 02-04-2022 End: 59-30-1853qrwckkbrlnHuoqd Girvin Other noFandium Other Start: 62-13-0674Bhnkvtour encounterDavid ArminSAGE [facility] [place]vueStart: 10-21-2021 End: 80-54-9086kpoimjkespWrvsp Girvin Other noFandium Other Start: 44-78-7325Wdiayqrpa for general adult medical examination without abnormal findingsDashadilucien [facility] [place] Start: 22-61-0402Fadwrxhs preventive med est patient 40-64yrsDavilucien Edwards [facility] BellevueStart: 10-11-2021 End: 25-24-5078qjdopppnawRH DAVID GIRVINFacility:V7Yccsn: 08-06-2021 End: 08-32-8948dugutahwrvPwojd Girvin Other noFandium Other Start: 12-55-6895Lhfwyrxoj encounterDavilucien BertoG [facility] BellevueStart: 03-11-2021 End: 06-62-4453dsxzfdjgupJxgqc Girvin Other noFandium Other Start: 90-48-0959Ykwubp outpatient visit 15 minutes Deon [facility] [place]vueStart: 02-17-2021 End: 36-37-7790rphnsniexvEbgxs Girvin Other [facility] [employer] Other Start: 89-09-6276Usoumaolz encounterDavilucien Edwards [facility] BellevueStart: 02-13-2021 End: 08-39-3291yhozonlkrpFdbki Girvin Other [facility] [employer] Other Start: 63-18-5561Ewdhfjrdr encounterDavilucien Edwards [facility] BellueStart: 02-12-2021 End: 13-08-9724jgtvrzrhmmVpzrqe Dymond Other [facility] [employer] Other Start: 89-66-5632Xhaake outpatient visit 15 minutes Adina VelaFPG Urgent Care ClydeStart: 43-93-8194Bycnedngz encounterDavilucien FunezFPG Urgent [facility] [place] Procedures DateProcedureProcedure DetailPerforming ClinicianStart: 99-05-8905OAM screening DR DEON Greene on above:Performed By: #### PSASC #### [facility] [address] [place] [address] Dr. Puja Presleyreening for malignant neoplasm of colonParaul Vela Other Plan of Treatment DateCare ActivityDetailAuthorComprehensive metabolic 2000 panel - Serum or PlasmaBerger HospitalInsulin [Units/volume] in Serum or Plasma [facility] HospitalUrine cultureUniversity Of Miami Hospital Immunizations Immunization DateImmunizationNotesCare OcresgmmUklfysim69-30-0727ywdzza vaccine recombinantDavid Armin Other [facility]03-25-2023zoster vaccine recombinantDavid Armin Other [address] [place], [place] 2153603-20-2023Shingrix 50 MCG/0.5ML; Translations: [Shingrix 50 MCG/0.5ML]Deon Funez Other [place] [employer] Other [id number]-76 Vaccine Moderna - Documentation Purposes OnlyPamela Mirian Other [facility]04-11-2021COVID-19 Vaccine Moderna - Documentation Purposes OnlyPamela Mirian Other [facility]03-15-2021COVID-19 Vaccine Moderna - Documentation Purposes OnlyPamela Mirian Other [facility]09-25-2020influenza, seasonal, injectablePamela Mirian Other [facility]06-13-2016tetanus toxoid, reduced diphtheria toxoid, and acellular pertussis vaccine, adsorbed Adina Mirian Other [facility] Payers DatePayer CategoryPayerPolicy [id number] 2...[id number] 2...[id number] 2..[id number] 2..[id number] 2..[id number] 2..[id number] Social History DateTypeDetailFacilitySex Assigned At [facility] [employer] Other Start: 11-40-9980Dithuda smoking status NHISEx-smoker (finding)[facility] Centertart: 20-32-5405VtsZdyl (finding) [facility] Centertart: 50-77-2893Ycl Assigned At [facility] Clinical Notes 02-12-2021 to 06-14-2024 Note Date & WaztPoceGhyhtoob49-33-6229 Evaluation note* Diagnosis Onset Date Resolution Status Admit Date Allergic rhinitis acuteApril 2024 3:35pmHyperglycemiaacuteApril 2024 3:35pm HyperlipidemiaacuteApril 2024 3:35pmHypertensionacuteApril 2024 3:35pmWeight gainacuteApril 2024 3:35pm [facility] Work Phone: 1(903) 147-938310-02-2023 Evaluation note* Encounter Date Diagnosis Assessment Notes Treatment Notes Treatment Clinical Notes Nov, Hyperlipidemia (ICD-10 - E78.5) Discussed cholesterol results with patient today. Total is 178. HDL is 80. LDL is 88. Triglyceridesare 52. VLDL is 10.4. He admits that he has been misbehaving since he was last seen and has not been eating well. I did recommend that he watch his intake of carbs and sugars. Stay active. Nov,Wellness examination (ICD-10 - Z00.00)I did sign his wellness form for him today. Nov,Hyperglycemia (ICD-10 - R73.9)Discussed blood sugar results with patient today. Glucose [...] his intake of these type of foods. Nov,Nocturia (ICD-10 - R35.1) Nov,rostate cancer screening (ICD-10 - Z12.5)His PSA is 0.69 no sign of prostate cancer at this time. Nov,ERD (gastroesophageal reflux disease) (ICD-10 - K21.9)He is to continue with above medication daily as directed. Nov,Weight loss (ICD-10 - R63.4)He has not gained any weight since he was last seen here. Nov,Hypertension (ICD-10 - I10)His blood pressure is controlled. Continue with above medication as directed. Nov,Other skilled nursing (current) drug therapy (ICD-10 - Z79.899) Nov,llergic rhinitis (ICD-10 - J30.9)Continue with above medication as needed. [employer] Other 03-20-2023 Evaluation note* Encounter Date Diagnosis Assessment Notes Treatment Notes Treatment Clinical Notes Apr, Hyperlipidemia (ICD-10 - E78.5) Discussed cholesterol results with patient today. Total is 186. HDL is 79. LDL is 94.8. Triglycerides are 61. VLDL is 12.2. I would like him to continue with above medication daily as directed. Continue to monitor intake of carbs and sugars. Stay active. Apr,Hyperglycemia (ICD-10 - R73.9)Discussed blood sugar results with patient today. Glucose is 109. A1C is up from 5.5 to 5.6. His result is at the high end of normal. He admits that he loves cake. I did recommend that he cut back onhis intake of cake, sugars, sweets. Stay active. Apr,Hypertension (ICD-10 - I10)His blood pressure is controlled. Continue with above medication daily as directed. Apr,ERD (gastroesophageal reflux disease) (ICD-10 - K21.9)Continue with above medication daily as directed. Apr,Other skilled nursing (current) drug therapy (ICD-10 - Z79.899) Apr,Nocturia (ICD-10 - R35.1) Apr,Weight loss (ICD-10 - R63.4)His TSH is normal at 2.403. Apr,OtherHe saw Dr. Patel for his hip in the fall (2021) but was not given an injection the second timehe was seen, only the first time he [...] [place] [facility] [place] any trouble with his hip.He voices that he did recover from COVID-19 after having this illness in Jan (2021). [employer] Other 12-14-2022 Evaluation note* Encounter Date Diagnosis Assessment Notes Treatment Notes Treatment Clinical Notes Jan, Fever (ICD-10 - R50.9) Rest, Tylenol as needed. Jan,OVID-19 (ICD-10 - U07.1)He voices that he tested himself for COVID- 19 this morning and it was positive. He does have a low grade fever. We discussed Paxlovid today, if he were to take this he would have to hold his statin until he is finished with the Paxlovid. Side effects/risks/benefits of Paxlovid were reviewed. He wasadvised that there is a chance he can get rebound COVID-19 from the Paxlovid. He would like to takePaxlovid. Guidance is given on how to take the medication. He is encouraged to rest, push fluids. Any trouble breathing or concerns go to the ER for evaluation. Right now he does not want an inhaler.He needs to stay quarantined and isolated for five days, if feeling better he can re-enter public but should wear a mask for an additional five days. Jan,Fatigue (ICD-10 - R53.83) Jan,Muscle ache (ICD-10 - M79.10) Jan,ough (ICD-10 - R05.9)He does not feel tight in his chest, voices that it is painful to cough. If he begins to feel tightin the chest then he should let me know. Right now he declines to have an inhaler on hand. Jan,ther9:01 AM - 9:07 AM [employer] Other 08-30-2022 Evaluation note* Encounter Date Diagnosis Assessment Notes Treatment Notes Treatment Clinical Notes Sep, Hypertension (ICD-10 - I10) His blood pressure is controlled, continue with above medications daily as directed. Sep,Wellness examination (ICD-10 - Z00.00)He is here for a wellness exam today. After evaluation I did sign his wellness form. Sep,Hyperlipidemia (ICD-10 - E78.5)Discussed cholesterol results with patient today. Total is 176. HDL is 81. LDL is 75.8. Triglycerides are 96. He is encouraged to continue with what he is doing as it is working well. Stay active. Wediscussed a coronary calcium score which is a CT scan of the coronary arteries. He is able to be active without chest pain. He is on a high dose statin and his readings are at goal. Right now I do not feel this is indicated for him, he is comfortable with this. Sep,Hyperglycemia (ICD-10 - R73.9)Discussed blood sugar results with patient today. Glucose is 111. HgA1C is normal at 5.5. He is to continue to monitor his intake of carbs and sugars. Stay active. Sep,rostate cancer screening (ICD-10 - Z12.5)PSA is 0.61 no sign of prostate cancer at this time. He does not follow with Dr. West any longer. Sep,Nocturia (ICD-10 - R35.1) Sep,GERD (gastroesophageal reflux disease) (ICD-10 - K21.9)Continue with above medication daily as directed. Sep,llergic rhinitis (ICD-10 - J30.9)Continue with above medications as directed. Sep,Hip pain, left (ICD-10 - M25.552)He voices that if he lays flat on his back it does not hurt, but if he lies on his side it bothers his hip. If he stretches the hip it will hurt. He does not have anything in his back or sciatica. Onexam, he is told that he may have an issue in the bursa. He may have greater trochanteric bursitis,it does not appear to be an actual hip issue. He denies any groin pain and can walk for miles before he gets minimal hip pain. I did explain to him that an orthopedic surgeon can do an injection in the bursa sac to provide him with relief if needed. He would like a referral, voices that this issue is causing him to lose sleep. I will refer him to Dr. Patel. Sep,Weight loss (ICD-10 - R63.4)He has lost 1.5 pounds since last seen. Sep,ther skilled nursing (current) drug therapy (ICD-10 - Z79.899) Sep,therHe has seborrheic keratosis noted on his back, he is told that these are genetic and grow on the skin, these can become thick but never turn into cancer. Reassurance given. [employer] Other 01-18-2022 Evaluation note* Encounter Date Diagnosis [...] so I will have him get lab repeatedin September and see him back in late September (2021) and every six months from there on. He is in agreement to this plan. Feb,Hyperglycemia (ICD-10 - R73.9) Discussed blood sugar results with patient today. Glucose is 95. HgA1C is 5.7 which is at the higher end of normal but unchanged since last checked. He is to continue to monitor his intake of carbs and sugars. Stay active. Feb,Nocturia (ICD-10 - R35.1) Feb,llergic rhinitis (ICD-10 - J30.9) Continue with above medications as needed. Feb,Hypertension (ICD-10 - I10) Blood pressure is controlled. Continue with above medications daily as directed. 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 Feb,therHe was ill at the end of Jan (2020) and was tested for COVID-19 but it was negative. He voices thathe has never been diagnosed with COVID-19. He has been vaccinated for COVID-19. [employer] Other 12-22-2021 Evaluation note* Encounter Date Diagnosis Assessment Notes Treatment Notes Treatment Clinical Notes Jan, Contact with and (epps spected) exposure to other viral communicable diseases (ICD-10 - Z20.828) Jan,cute sinusitis, recurrence not specified, unspecified location (ICD-10 [...] receive results of your Covid PCR test Jan,Other Additional time spent conducting pre-visit phone call, screening for symptoms, instructions on social distancing, application and removal of PPE, and cleaning of examination room, equipment and supplies was preformed. Patient education given for testing methodology and results. Patient care instructions given in writting by [facility] document. [employer] Other Evaluation noteNo InformationNort [employer] Other Evaluation noteNopemiscot memorial health systems [employer] Other History general Narrative - Reported* Type Description Date Medical History Brain Stem STROKE-1996- age 36 Medical HistoryHYPERLIPIDEMIA-TRIGLYCERIDESMedical HistoryHistory of Immune Thrombocytopenia PurpuraMedical Historysaw Dr. West for Hydrocele, does not currently follow with himMedical Historyarthritis in elbowsMedical History 03-04-15 Colonoscopy, Dr. Marquez, normal repeat in 10 yearsSurgical HistoryCYST REMOVED FROM GROIN AREA-[id number] HistoryDNA - [id number] HistoryColonoscopy - [facility] [place] Dr Marquez - repeat in 10 miild4-74-1334 Hospitalization Historysee above [employer] Other History general Narrative - ReportedNort [employer] Other Hisueaj general Narrative - Reported* Type Description Date Medical History Brain Stem STROKE-1996- age 36 Medical HistoryHYPERLIPIDEMIA-TRIGLYCERIDESMedical HistoryHistory of Immune Thrombocytopenia PurpuraMedical Historysaw Dr. West for Hydrocele, does not currently follow with himMedical Historyarthritis in elbowsMedical History -01-07 Colonoscopy, Dr. Marquez, normal repeat in 10 yearsSurgical HistoryCYST REMOVED FROM GROIN AREA-[id number] HistoryDNA - [id number] HistoryColonoscopy - [facility] [place] Dr Marquez - repeat in 10 years / [id number] Hospitalization Historysee above [employer] Other Reason for Referral Reason appt pt needs cons ult to evaluate possible bursitis left hip Diagnosis 1 Hip pain, left (M25. 552) Referral Organization [facility] Family Jhonatan Miller Referring Provider First Name Deon Referring Provider Last Name Armin Referring Provider Specialty Family Prac yeimi Referred Organization [facility] Referred Provider Jonathan Patel Referred Address ,[place], [place],[address] Referred Provider Specialty Orthopedic S urgery Referral Priority Routine General Notes Yina Padilla 10/21/2021 11:18:24 AM > referral was sent p2p and hard faxed with visit note and insurance card. pt understands he will be contacted to schedule this appt. Summary Purpose Family History No Family History Records Found Relationship Condition Age at Onset Recorded Date/T wilfredo brother Heart disease Unknown Diabetes mellitusUnknownfatherHistory of strokeUnknownDeceasedUnknownMini stroke UnknownmotherDeceasedUnknownDementiaUnknownFamily history of mental disorder UnknownHeart diseaseUnknown Advance Directives No Advanced Directives Records Found Advance Directive Response Recorded Date/ Time Advance Directives No July 28 9:43am Chief Complaint and Reason for Visit Chief Complaint Admit Date review labs June 14, 2024 3:3 5pm Reason for Visit Admit Date Allergic rhinitis June 14, 2024 3:3 5pm Hyperglycemia June 14, 2024 3:3 5pm Hyperlipidemia June 14, 2024 3:3 5pm Hypertension June 14, 2024 3:3 5pm Weight gain June 14, 2024 3:3 5pm Additional Source Comments REASON FOR VISIT (unrecogniz ed section and content) #27 RED CHEVY, CONGESTION, S ORE THROAT, FATIGUENo InformationNo Informationreview labsrx Atorvastatinreview labsfever/fatigue/congestionreview labsreview labs (unrecognized sect ion and content) No Status Records FoundNo Status Records Found INFORMATION SOURCE (unrecogn ized section and content) DATE CREATED AUTHOR 05/06/[address] [facility] DATE CREATED AUTHOR AUTHOR'S ORGANIZ ATION 07/27/2024 [facility] EPIC Care Teams (unrecognized sec tion and content) Team Status: Active Member Role Status Dates Deon Funez DO Primary Care Provider Active Team Status: Active Member Role Status Dates Deon Funez DO Primary Care Provide r, Attending Provider Active Start: June 10, 2024 Team Status: Inactive Member Role Status Dates Deon Funez DO Primary Care Provide r, Attending Provider Active Start: June 14, 2024 End: June 14, 2024 Goals (unrecognized section and content) Goals may be documented in a n alternate section FOR RECORDS PERTAINING TO PATIENTS WHO ARE [...] BE BASED ON THE PRIMARY CLINICAL RECORDS. [employer] [facility]. provides no warranty or guarantee of the accuracy or completeness of information in this document.
[2024-12-12 07:02] LABS: Glucose Urine UA NEGATIVE (NEGATIVE)
[2024-12-12 07:03] LABS: Hematocrit 45.4 % (42.0-54.0); Hemoglobin 15.9 g/dL (14.0-18.0); Immature Granulocytes Abs Auto 0.01 10^3/uL (0.00-0.03); Immature Granulocytes Pct Auto 0.2 % (0.0-0.5); Lymphocytes Absolute Auto 1.2 10^3/uL (1.2-3.8); Mean Corpuscular HGB Conc 35.0 g/dL (29.9-35.2); Mean Corpuscular Hemoglobin 31.5 pg (25.9-34.0); Mean Corpuscular Volume 90.1 fL (80.0-94.0); Platelet Count 226 10^3/uL (150-450); Red Blood Count 5.04 10^6/uL (4.70-6.10); White Blood Count 5.2 10^3/uL (4.0-11.0)
[2024-12-12 07:39] LABS: Alanine Aminotransferase 34 U/L (16-63); Albumin Globulin Ratio 1.1; Albumin Level 3.8 g/dL (3.4-5.0); Alkaline Phosphatase 69 U/L (46-116); Anion Gap 12.8; Aspartate Amino Transferase 24 U/L (15-37); Blood Urea Nitrogen 16.0 mg/dL (7.0-18.0); Calcium 8.9 mg/dL (8.5-10.1); Carbon Dioxide 29.5 mmol/L (21.0-32.0); Chloride 104 mmol/L (98-107); Cholesterol 167 mg/dL (<=200); Estimated GFR (African America >60 (>=60 mL/min/1.73m^2); Estimated GFR (Non-African Ame >60 (>=60 mL/min/1.73m^2); Globulin 3.5 g/dL; Glucose 100 mg/dL (74-106); HDL Cholesterol 83 mg/dL (40-60); Potassium 4.3 mmol/L (3.5-5.1); Sodium 142 mmol/L (136-145); Total Protein 7.3 g/dL (6.4-8.2); Triglycerides 93 mg/dL (<=150); VLDL CHOLESTEROL 18.6 mg/dL
== END 2024-12-12 06:20 | disposition home or self-care (01) ==
LOC: LAB 06:25
PROVIDERS: PCP Family Medicine; Visit Provider Family Medicine
DX: R35.1 Nocturia (principal); Z12.5 Encounter for screening for malignant neoplasm of prostate; Z79.899 Other long term (current) drug therapy; E78.5 Hyperlipidemia, unspecified; R73.9 Hyperglycemia, unspecified
CPT/HCPCS: 36415; 80053; 80061; 81003; 83036; 83525; 85025; 87086; G0103